=== PATIENT | female | born 1975 | race Caucasian/White ===

== ENCOUNTER 2017-04-26 19:30 | Emergency (ER) | payer MEDICARE, OTHER ==
[~2017-04-26] VITALS: Ht 152.4 cm; Wt 97.5 kg
[~2017-04-26 19:30] MED LIST: ABAC300; ALBU90OI61 INH; AMLO10 PO; ATOR40TA PO; AZIT250 PO; CALACE667G PO; CALC.25 PO; CINA30 PO; CIPR500 PO; CLON.5 PO; CYCL10 PO; DILT120ER PO; DOXE2.5 PO; ENAL20 PO; ENAL5 PO; ESOM20 PO; FOSRENAL PO; FURO40 PO; Fosrenol750 MG PO; GABA100 PO; HYDACE5 PO; INSR10I; INSUASPI SC; INSUASPI SS; INSULANI; INSULANI SC; INSULANPEN SC; INSULIN-REGULAR; LEVSOD75 PO; LISI5 PO; LOSARTAN POTASS50 MG PO; LOSHYD; MECL12.5 PO; MEDR2.5 PO; METO10 PO; METO25ER PO; METO50 PO; MIDO2.5 PO; MIDO5 PO; NEPHRO-VITE PO; NEPHRO-VITE RX1 EACH PO; Nephro-Vite RX1 EA PO; Norco 5-325 Ta1 EACH PO; Novolog Fl100 UNIT/1 SC; Novolog Fl100 UNIT/1 SQ; ONDA4 PO; ONDA4ODT MM; OXYACE5T PO; PENVK500 PO; PROM25 PO; Pepcid20 MG PO; ROPI.25 PO; ROSU10TA PO; Ropinirole HC0.25 MG PO; SENSIPAR PO; SERT100 PO; SEVEC800; SEVEC800 PO; SULTRIDS PO; SUMA25 PO; Synthroid75 MCG PO; VITAMIN D3 COM1 EACH PO; Zofran Odt4 MG PO; Zofran Odt4 MG SL; [UNRECOGNIZED DRUG - OTHER]; [UNRECOGNIZED DRUG - REMARK] PO
[2017-04-26 22:09] LABS: BASOPHILS ABSOLUTE AUTO 0.01 K/mm3 (0.00-0.23); BASOPHILS PERCENT AUTO 0 % (0-2); EOSINOPHILS ABSOLUTE AUTO 0.14 K/mm3 (0.00-0.68); EOSINOPHILS PERCENT AUTO 2 % (0-6); Hematocrit 31.6 % (33.0-51.0); Hemoglobin 9.9 g/dL (11.5-16.0); IMMATURE GRAN ABSOLUTE AUTO 0.03 K/mm3 (0.00-0.10); IMMATURE GRAN PERCENT AUTO 0 % (0-1); LYMPHOCYTES ABSOLUTE AUTO 1.85 K/mm3 (0.84-5.20); LYMPHOCYTES PERCENT AUTO 27 % (21-46); MONOCYTES ABSOLUTE AUTO 0.41 K/mm3 (0.16-1.47); MONOCYTES PERCENT AUTO 6 % (4-13); Mean Corpuscular HGB 29.7 pg (26.0-34.0); Mean Corpuscular HGB Conc 31.3 g/dL (31.5-36.5); Mean Corpuscular Volume 95 fL (80-100); Mean Platelet Volume 8.4 fL (9.1-12.4); NEUTROPHILS ABSOLUTE AUTO 4.46 K/mm3 (1.96-9.15); NEUTROPHILS PERCENT AUTO 65 % (41-73); Platelet Count 279 K/mm3 (150-400); RDW Coefficient Variation 18.3 % (11.7-14.2); RDW Standard Deviation 62.6 fL (35.1-46.3); Red Blood Cell Count 3.33 M/mm3 (3.80-5.20)
[2017-04-26 22:27] LABS: Albumin, Blood 3.8 g/dL (3.4-5.0); Bilirubin, Total 0.5 mg/dL (0.1-1.0); Bun/Creatinine Ratio 6.4 (12.0-20.0); Calcium, Blood 9.2 mg/dL (8.5-10.1); Creatinine, Blood 7.17 mg/dL (0.40-1.00); Globulin, Blood 3.8 g/dL (2.2-4.0); Potassium, Blood 3.7 mmol/L (3.5-5.5); Total Protein, Blood 7.6 g/dL (6.4-8.2)
[2017-07-01] MEDS ORDERED: BIOTIN FORTE PO (17:18)
[2017-07-01] MEDS ORDERED: CALC.25 PO (17:19)
[2017-07-01] MEDS ORDERED: CHOL10002 PO (17:20)
[2017-07-01] MEDS ORDERED: Fosrenol1000 MG PO (17:20)
[2017-07-01] MEDS ORDERED: NEPHRO-VITE RX1 EACH PO (17:21)
== END 2017-04-26 23:15 | disposition home or self-care (01) ==
LOC: ER 19:30
PROVIDERS: Emergency Medicine
DX: J20.9 Acute bronchitis, unspecified (principal); F41.9 Anxiety disorder, unspecified; E11.22 Type 2 diabetes mellitus with diabetic chronic kidney disease; N18.9 Chronic kidney disease, unspecified; Z99.2 Dependence on renal dialysis; Z88.1 Allergy status to other antibiotic agents; Z88.8 Allergy status to other drugs, medicaments and biological substances; Z79.899 Other long term (current) drug therapy; Z79.4 Long term (current) use of insulin
CPT/HCPCS: 36415; 71046; 80053; 82947; 85025; 93005; 93010; 99284

== ENCOUNTER 2017-04-28 04:27 | Emergency (ER) | payer MEDICARE, OTHER ==
[~2017-04-28] VITALS: Ht 152.4 cm; Wt 97.5 kg
[2017-04-28 05:00] LABS: Calcium, Ionized (POC) 1.06 mmol/L (1.10-1.46); Chloride (POC) 95 mmol/L (98-108); Creatinine (POC) 10.8 mg/dL (0.6-1.0); Glucose (ISTAT POC) 208 mg/dL (70-99); Hemoglobin (POC) 9.2 g/dL (12.0-16.0); Potassium (POC) 4.3 mmol/L (3.5-5.5); Sodium (POC) 138 mmol/L (135-148); Total CO2 (POC) 31 mmol/L (21-32)
[2017-04-28 05:15] LABS: BASOPHILS ABSOLUTE AUTO 0.01 K/mm3 (0.00-0.23); BASOPHILS PERCENT AUTO 0 % (0-2); EOSINOPHILS ABSOLUTE AUTO 0.15 K/mm3 (0.00-0.68); EOSINOPHILS PERCENT AUTO 2 % (0-6); Hematocrit 30.4 % (33.0-51.0); Hemoglobin 9.5 g/dL (11.5-16.0); IMMATURE GRAN ABSOLUTE AUTO 0.05 K/mm3 (0.00-0.10); IMMATURE GRAN PERCENT AUTO 1 % (0-1); LYMPHOCYTES ABSOLUTE AUTO 1.31 K/mm3 (0.84-5.20); LYMPHOCYTES PERCENT AUTO 18 % (21-46); MONOCYTES ABSOLUTE AUTO 0.39 K/mm3 (0.16-1.47); MONOCYTES PERCENT AUTO 5 % (4-13); Mean Corpuscular HGB 29.7 pg (26.0-34.0); Mean Corpuscular HGB Conc 31.3 g/dL (31.5-36.5); Mean Corpuscular Volume 95 fL (80-100); Mean Platelet Volume 8.3 fL (9.1-12.4); NEUTROPHILS ABSOLUTE AUTO 5.53 K/mm3 (1.96-9.15); NEUTROPHILS PERCENT AUTO 74 % (41-73); Platelet Count 232 K/mm3 (150-400); RDW Coefficient Variation 18.1 % (11.7-14.2); RDW Standard Deviation 62.4 fL (35.1-46.3); White Blood Cell Count 7.44 K/mm3 (4.00-11.30)
[2017-04-28 05:52] LABS: Albumin, Blood 3.7 g/dL (3.4-5.0); Albumin/Globulin Ratio 1.1 (0.8-1.8); Bilirubin, Total 0.7 mg/dL (0.1-1.0); Calcium, Blood 8.6 mg/dL (8.5-10.1); Globulin, Blood 3.5 g/dL (2.2-4.0); Total Protein, Blood 7.2 g/dL (6.4-8.2)
[2017-04-28 05:55] LABS: Creatinine, Blood 10.3 mg/dL (0.40-1.00)
[2017-04-28 05:59] LABS: Troponin I 0.021 ng/mL (0.000-0.040)
[2017-04-28 06:16] LABS: Influenza A Negative (NEGATIVE); Influenza B Negative (NEGATIVE)
[2017-07-01] MEDS ORDERED: BIOTIN FORTE PO (17:18)
[2017-07-01] MEDS ORDERED: CALC.25 PO (17:19)
[2017-07-01] MEDS ORDERED: CHOL10002 PO (17:20)
[2017-07-01] MEDS ORDERED: Fosrenol1000 MG PO (17:20)
[2017-07-01] MEDS ORDERED: NEPHRO-VITE RX1 EACH PO (17:21)
== END 2017-04-28 07:29 | disposition home or self-care (01) ==
LOC: ER 04:27
PROVIDERS: Emergency Medicine
DX: R05 Cough (principal); Z88.1 Allergy status to other antibiotic agents; Z88.8 Allergy status to other drugs, medicaments and biological substances; Z79.899 Other long term (current) drug therapy; Z79.4 Long term (current) use of insulin; F41.9 Anxiety disorder, unspecified; E11.9 Type 2 diabetes mellitus without complications; Z87.891 Personal history of nicotine dependence
CPT/HCPCS: 71046; 80047; 80053; 84484; 85014; 85025; 87804; 93005; 93010; 94640; 96374; 96375; 99283; J2405; J2930

== ENCOUNTER 2017-07-06 08:55 | Day surgery (SDC) | payer MEDICARE, OTHER ==
[~2017-07-06] VITALS: Ht 152.4 cm; Wt 96.6 kg
[~2017-07-06 08:55] MED LIST changes: +BIOTIN FORTE PO; +CHOL10002 PO; +Fosrenol1000 MG PO
== END 2017-07-06 23:07 | disposition home or self-care (01) ==
LOC: ORSCMMR 08:55
PROVIDERS: Internal Medicine Gastroenterology
PROC: 0DB68ZX Excision of Stomach, Via Natural or Artificial Opening Endoscopic, Diagnostic (ICD-10-PCS; principal; 2017-07-06 10:00)
PROC: 0DB98ZX Excision of Duodenum, Via Natural or Artificial Opening Endoscopic, Diagnostic (ICD-10-PCS; principal; 2017-07-06 10:00)
DX: R10.13 Epigastric pain (principal); R11.0 Nausea; F32.9 Major depressive disorder, single episode, unspecified; K21.9 Gastro-esophageal reflux disease without esophagitis; G47.33 Obstructive sleep apnea (adult) (pediatric); N18.6 End stage renal disease; Z99.2 Dependence on renal dialysis; E10.22 Type 1 diabetes mellitus with diabetic chronic kidney disease; Z79.4 Long term (current) use of insulin; E66.01 Morbid (severe) obesity due to excess calories; Z68.41 Body mass index [BMI] 40.0-44.9, adult; Z79.899 Other long term (current) drug therapy
CPT/HCPCS: 82435; 82947; 84132; 84295; 84703; 88305; 88313; 88341; 88342; J2710; J7030

== ENCOUNTER → 2017-08-03 | Outpatient (CLI) | payer MEDICARE, OTHER | END | disposition home or self-care (01) | LOC: LAB 14:29 → LAB SHORT 14:29 | DX: M45.4 Ankylosing spondylitis of thoracic region (principal) | CPT/HCPCS: 86812 ==

== ENCOUNTER → 2017-09-12 | Outpatient (CLI) | payer MEDICARE, OTHER ==
[2017-09-12 16:23] LABS: Rheumatoid Factor, Serum Negative (Negative)
[2017-09-14 14:15] LABS: Antinuclear Antibody Screen Negative (Negative)
== END | disposition home or self-care (01) ==
LOC: EDSTATUS 08:02 → LAB DAV 12:43
PROVIDERS: Internal Medicine Nephrology
DX: M54.5 Low back pain (principal); M25.569 Pain in unspecified knee
CPT/HCPCS: 86038; 86430

== ENCOUNTER 2017-10-22 15:58 | Emergency (ER) | payer MEDICARE, OTHER ==
[~2017-10-22] VITALS: Ht 152.4 cm; Wt 90.3 kg
== END 2017-10-22 17:54 | disposition home or self-care (01) ==
LOC: ER 15:58
DX: R05 Cough (principal); Z88.1 Allergy status to other antibiotic agents; Z88.8 Allergy status to other drugs, medicaments and biological substances; Z79.4 Long term (current) use of insulin; Z79.899 Other long term (current) drug therapy; E10.22 Type 1 diabetes mellitus with diabetic chronic kidney disease; I12.0 Hypertensive chronic kidney disease with stage 5 chronic kidney disease or end stage renal disease; N18.6 End stage renal disease; E03.9 Hypothyroidism, unspecified; E66.01 Morbid (severe) obesity due to excess calories; Z87.891 Personal history of nicotine dependence
CPT/HCPCS: 71046; 99283

== ENCOUNTER → 2018-04-30 | Outpatient (CLI) | payer MEDICARE, OTHER | END | disposition home or self-care (01) | LOC: LAB DAV 15:30 | DX: N18.6 End stage renal disease (principal) | CPT/HCPCS: 84550 ==

== ENCOUNTER → 2018-07-02 | Outpatient (CLI) | payer MEDICARE, OTHER ==
[2018-07-02 14:18] LABS: Hematocrit 32.2 % (33.0-51.0); Hemoglobin 10.4 g/dL (11.5-16.0)
== END | disposition home or self-care (01) ==
LOC: LAB 14:03 → LAB SHORT 14:03
PROVIDERS: Internal Medicine Nephrology
DX: D64.9 Anemia, unspecified (principal)
CPT/HCPCS: 85014; 85018

== ENCOUNTER 2019-01-15 14:36 | Emergency (ER) | payer MEDICARE, OTHER ==
[~2019-01-15] VITALS: Ht 152.4 cm; Wt 92.1 kg
[2019-01-15] MEDS ORDERED: CALCIUM ACETAT667 MG PO (14:56)
[2019-01-15] MEDS ORDERED: LEVSOD50 PO (14:57)
[2019-01-15] MEDS ORDERED: SEVEC800 PO (14:57)
[2019-01-15] MEDS ORDERED: Zoloft100 MG PO (14:58)
[2019-01-15] MEDS ORDERED: Ropinirole HCl0.5 MG PO (14:58)
[2019-01-15] MEDS ORDERED: NOVOLOG FL100 UNIT/1 (14:59)
[2019-01-15] MEDS ORDERED: Neurontin 100100 MG PO (14:59)
[2019-01-15] MEDS ORDERED: THERA-D2000 UNIT PO (15:01)
[2019-01-15] MEDS ORDERED: basaglar SC (15:02)
[2019-01-15] MEDS ORDERED: NORTHERA100 MG PO (15:03)
[2019-01-15 16:23] LABS: BASOPHILS ABSOLUTE AUTO 0.02 K/mm3 (0.00-0.23); BASOPHILS PERCENT AUTO 0 % (0-2); EOSINOPHILS ABSOLUTE AUTO 0.17 K/mm3 (0.00-0.68); EOSINOPHILS PERCENT AUTO 3 % (0-6); Hematocrit 32.5 % (33.0-51.0); Hemoglobin 10.5 g/dL (11.5-16.0); IMMATURE GRAN ABSOLUTE AUTO 0.04 K/mm3 (0.00-0.10); IMMATURE GRAN PERCENT AUTO 1 % (0-1); LYMPHOCYTES ABSOLUTE AUTO 1.65 K/mm3 (0.84-5.20); LYMPHOCYTES PERCENT AUTO 29 % (21-46); MONOCYTES ABSOLUTE AUTO 0.43 K/mm3 (0.16-1.47); MONOCYTES PERCENT AUTO 8 % (4-13); Mean Corpuscular HGB 33.3 pg (26.0-34.0); Mean Corpuscular HGB Conc 32.3 g/dL (31.5-36.5); Mean Corpuscular Volume 103 fL (80-100); Mean Platelet Volume 9.4 fL (9.1-12.4); NEUTROPHILS ABSOLUTE AUTO 3.37 K/mm3 (1.96-9.15); NEUTROPHILS PERCENT AUTO 59 % (41-73); Platelet Count 262 K/mm3 (150-400); RDW Coefficient Variation 14.8 % (11.7-14.2); RDW Standard Deviation 55.9 fL (35.1-46.3); Red Blood Cell Count 3.15 M/mm3 (3.80-5.20); White Blood Cell Count 5.68 K/mm3 (4.00-11.30)
[2019-01-15 16:42] LABS: Troponin I <0.015 ng/mL (0.000-0.040)
[2019-01-15 16:43] LABS: Alanine Aminotransfer (ALT/SGP 15 U/L (12-78); Albumin, Blood 3.8 g/dL (3.4-5.0); Alk Phos 72 U/L (50-136); Anion Gap 5 mmol/L (6-16); Aspartate Aminotrans (AST/SGOT 14 U/L (12-37); Bilirubin, Total 0.4 mg/dL (0.1-1.0); Blood Urea Nitrogen 46 mg/dL (8-24); Bun/Creatinine Ratio 6.9 (12.0-20.0); CO2, Blood 31 mmol/L (21-32); Calcium, Blood 8.2 mg/dL (8.5-10.1); Chloride, Blood 99 mmol/L (98-108); Creatinine, Blood 6.71 mg/dL (0.40-1.00); Globulin, Blood 3.8 g/dL (2.2-4.0); Glomerular Filtration Rate 7 (60-); Glucose, Blood 289 mg/dL (70-99); Potassium, Blood 4.9 mmol/L (3.5-5.5); Sodium, Blood 135 mmol/L (136-145); Total Protein, Blood 7.6 g/dL (6.4-8.2)
== END 2019-01-15 17:46 | disposition home or self-care (01) ==
LOC: ER 14:36
PROVIDERS: Physician Assistant
DX: I95.1 Orthostatic hypotension (principal); E11.22 Type 2 diabetes mellitus with diabetic chronic kidney disease; N18.6 End stage renal disease; F41.9 Anxiety disorder, unspecified; Z99.2 Dependence on renal dialysis; Z87.891 Personal history of nicotine dependence; Z88.1 Allergy status to other antibiotic agents; Z88.8 Allergy status to other drugs, medicaments and biological substances; Z91.048 Other nonmedicinal substance allergy status; Z79.899 Other long term (current) drug therapy; Z79.4 Long term (current) use of insulin
CPT/HCPCS: 36415; 80053; 84484; 85025; 93005; 93010; 99284-25

== ENCOUNTER → 2019-02-04 | Outpatient (CLI) | payer MEDICARE, OTHER ==
[~2019-02-04] MED LIST changes: +CALCIUM ACETAT667 MG PO; +LEVSOD50 PO; +NORTHERA100 MG PO; +NOVOLOG FL100 UNIT/1; +Neurontin 100100 MG PO; +Ropinirole HCl0.5 MG PO; +THERA-D2000 UNIT PO; +Zoloft100 MG PO; +basaglar SC
[2019-02-04 17:25] LABS: Amylase, Blood 90 U/L (25-115)
[2019-02-04 19:13] LABS: Alanine Aminotransfer (ALT/SGP 20 U/L (12-78); Albumin, Blood 3.9 g/dL (3.4-5.0); Albumin/Globulin Ratio 0.9 (0.8-1.8); Alk Phos 80 U/L (50-136); Aspartate Aminotrans (AST/SGOT 17 U/L (12-37); Bilirubin, Direct <0.1 mg/dL (0.0-0.3); Bilirubin, Indirect Unable to Calculate mg/dL (0.1-0.7); Bilirubin, Total 0.5 mg/dL (0.1-1.0); Globulin, Blood 4.4 g/dL (2.2-4.0); Total Protein, Blood 8.3 g/dL (6.4-8.2)
== END | disposition home or self-care (01) ==
LOC: LAB SHORT 16:38 → LAB 16:38
PROVIDERS: Internal Medicine Nephrology
DX: R10.9 Unspecified abdominal pain (principal)
CPT/HCPCS: 80076; 82150; 83690

== ENCOUNTER 2019-07-18 14:00 | Emergency (ER) | payer MEDICARE, OTHER ==
[~2019-07-18] VITALS: Ht 152.4 cm; Wt 90.7 kg
== END 2019-07-18 14:41 | disposition home or self-care (01) ==
LOC: ER 14:00
DX: Z00.00 Encounter for general adult medical examination without abnormal findings (principal); Z88.1 Allergy status to other antibiotic agents; Z88.8 Allergy status to other drugs, medicaments and biological substances; Z79.899 Other long term (current) drug therapy; F41.9 Anxiety disorder, unspecified; E11.9 Type 2 diabetes mellitus without complications; N19 Unspecified kidney failure; Z87.891 Personal history of nicotine dependence
CPT/HCPCS: 99283

== ENCOUNTER 2019-08-07 23:44 | Inpatient (IN) | payer MEDICARE, OTHER ==
[~2019-08-07] VITALS: Ht 152.4 cm; Wt 92.7 kg
[~2019-08-07 23:44] MED LIST changes: +EUTHYROX50 MCG PO; -LEVSOD50 PO
[2019-08-08 01:35] LABS: BASOPHILS ABSOLUTE AUTO 0.03 K/mm3 (0.00-0.23); BASOPHILS PERCENT AUTO 0 % (0-2); EOSINOPHILS ABSOLUTE AUTO 0.27 K/mm3 (0.00-0.68); EOSINOPHILS PERCENT AUTO 3 % (0-6); Hematocrit 36.5 % (33.0-51.0); Hemoglobin 11.5 g/dL (11.5-16.0); IMMATURE GRAN ABSOLUTE AUTO 0.09 K/mm3 (0.00-0.10); IMMATURE GRAN PERCENT AUTO 1 % (0-1); LYMPHOCYTES PERCENT AUTO 25 % (21-46); MONOCYTES ABSOLUTE AUTO 0.68 K/mm3 (0.16-1.47); MONOCYTES PERCENT AUTO 8 % (4-13); Mean Corpuscular HGB 31.9 pg (26.0-34.0); Mean Corpuscular HGB Conc 31.5 g/dL (31.5-36.5); Mean Corpuscular Volume 101 fL (80-100); Mean Platelet Volume 9.5 fL (9.1-12.4); NEUTROPHILS ABSOLUTE AUTO 5.68 K/mm3 (1.96-9.15); NEUTROPHILS PERCENT AUTO 63 % (41-73); Platelet Count 281 K/mm3 (150-400); RDW Coefficient Variation 14.7 % (11.7-14.2); Red Blood Cell Count 3.61 M/mm3 (3.80-5.20); White Blood Cell Count 9.05 K/mm3 (4.00-11.30)
[2019-08-08 02:06] LABS: Albumin, Blood 3.4 g/dL (3.4-5.0); Albumin/Globulin Ratio 0.8 (0.8-1.8); Bilirubin, Total 0.6 mg/dL (0.1-1.0); Bun/Creatinine Ratio 7.4 (12.0-20.0); Calcium, Blood 7.4 mg/dL (8.5-10.1); Creatinine, Blood 7.74 mg/dL (0.40-1.00); Globulin, Blood 4.3 g/dL (2.2-4.0); Potassium, Blood 7.3 mmol/L (3.5-5.5); Total Protein, Blood 7.7 g/dL (6.4-8.2)
[2019-08-08 03:23] LABS: Glucose, Blood 543 mg/dL (70-99); Potassium, Blood 5.8 mmol/L (3.5-5.5)
[2019-08-08] MEDS ORDERED: BENADRYL25 MG PO (04:28)
[2019-08-08] MEDS ORDERED: MOTION RELIEF25 MG PO (04:30)
--- NOTE | 2019-08-08 04:55 | NUR ---
HD 1:1 NON-ROUTINE HOURS HEMODIALYSIS TREATMENT ORDERED BY DR GONZALEZ FOR PATIENT ADMITTED TO ICU VIA ER WITH HYPERGLYCEMIA AND HYPERKALEMIA WITH SERUM K+ > 7.
[2019-08-08 04:56] LABS: Hematocrit 32.5 % (33.0-51.0); Hemoglobin 10.4 g/dL (11.5-16.0); Mean Corpuscular HGB 31.7 pg (26.0-34.0); Mean Corpuscular Volume 99 fL (80-100); Mean Platelet Volume 9.1 fL (9.1-12.4); Platelet Count 282 K/mm3 (150-400); RDW Coefficient Variation 14.6 % (11.7-14.2); Red Blood Cell Count 3.28 M/mm3 (3.80-5.20); White Blood Cell Count 9.07 K/mm3 (4.00-11.30)
[2019-08-08 05:35] LABS: Albumin, Blood 3.4 g/dL (3.4-5.0); Albumin/Globulin Ratio 0.8 (0.8-1.8); Bilirubin, Total 0.6 mg/dL (0.1-1.0); Bun/Creatinine Ratio 7.3 (12.0-20.0); Calcium, Blood 8.2 mg/dL (8.5-10.1); Creatinine, Blood 8.37 mg/dL (0.40-1.00); Globulin, Blood 4.1 g/dL (2.2-4.0); Potassium, Blood 4.4 mmol/L (3.5-5.5); Total Protein, Blood 7.5 g/dL (6.4-8.2)
--- NOTE | 2019-08-08 06:23 | NUR ---
PT WAS ADMITTED FROM ER AT 0405. ABLE TO AMB SELF TO BED WITHOUT DIFFICULTY. SHOP HAND IN ROOM DOING DIALYSIS. WAITING FOR DIALYSIS TO BE DONE BEFORE GIVING AZITHROMYACIN. PT WAS ON INSULIN GTT ON ARRIVAL TO UNIT BUT IT WAS D/C'D DUE TO CBG UNDER [address] HAINES. CBG IS NOW 95. PT DOES HAVE A CONTINUOUS MONITOR THAT SHE CAN MONITOR CBG FROM PHONE. PT STATES SHE IS FEELING BETTER NOW THAT HER CBG HAS IMPROVED. NO SIGN OF DISTRESS. DR. GONZALEZ HAS BEEN IN TO SEE PT.
--- NOTE | 2019-08-08 09:27 | NUR ---
Pt ref bath. Said she just got here early this AM and hasn't had much sleep and would like to try to nap. She will call if she changes her mind about getting cleaned up. RN notifed.
--- NOTE | 2019-08-08 09:37 | NUR ---
CARE ASSUMED CARE AND REPORT ASSUMED FROM DANYEL DIAZ. PT SITTING UP IN BED, A/O X 3, CALM AND COOPERATIVE. DENIES PAIN THIS AM. VSS. FINISHING DIALYSIS. STATES SHE DID NOT SLEEP MUCH LASTNIGHT SINCE SHE DIDN'T HAVE HER CPAP; MACHINE SETUP INITATED WITH RT. AFEBRILE. PT DOES HAVE WHEEZES IN ALL LUNG JORGE, SPO2 97% ON RA. LIMITED IV ACCESS CURRENTLY; WILL OBTAIN POSSIBLE POWERGLIDE. IV SALINE LOCKED. BLOOD SUAGAR 72 FOLLOWING DIALYSIS. WILL CONTINUE TO MONITOR.
[2019-08-08] MEDS ORDERED: INSULANPEN SC (10:03)
--- NOTE | 2019-08-08 10:48 | NUR ---
IV UPDATE MD LOZADA AT BEDSIDE FOR EVALUATION. STATES THAT IV ACCESS IS NOT NEEDED AT THIS TIME. WILL CONTINUE TO MONITOR.
--- NOTE | 2019-08-08 12:05 | NUR ---
REASSESSMENT PT REMAINS INDEPENDENT IN ROOM. VSS. NSR, HR 90S. BP WNL. SPO2 98% ON RA. TREATING BLOOD SUGARS WITH HUMALOG SLIDING SCALE AT THIS TIME. PT WILL RESUME HER LONG ACTING INSULIN THIS EVENING. AFEBRILE. PT CONTINUES TO HAVE WHEEZES IN BASES BUT DOES HAVE A STRONG COUGH REFLEX. WILL CONTINUE TO MONITOR.
--- NOTE | 2019-08-08 17:44 | NUR ---
SHIFT SUMMARY PT RECEIVED DIALYSIS THIS AM; 3L REMOVED. AWIATING COVID RESULTS; COMMUNITY TEST PENDING ALONG WITH ANTIBODY TEST. VSS ENTIRE SHIFT. PT NOW MEDICAL STATUS. ACHS HUMALOG TRANSITIONED FROM SLIDING SCALE TO CARB COUNT. PT REMAINS WITHOUT IV ACCESS; OK FROM MD LOZADA. PT INDEPENDENT IN ROOM. WILL GIVE BEDSIDE, HANDOFF REPORT TO ANNIE DIAZ.
--- NOTE | 2019-08-08 21:50 | NUR ---
ASSUMED CARE NOTE: ASSUMED CARE OF PT AT 1900, RECEVIED REPORT FROM AMANDA DIAZ. PT IS A/OX4, SHE AMBULATES INDEPENDENTLY IN THE ROOM. PT IS ON RA, WHEEZING IN BOTH LOWER LOBES NOTED. PT STATES SHE HAS A PRODUCTIVE COUGH, WITH YELLOW PHLEGM. PT VITALS STABLE. PT DENIES ANY PAIN/NAUSEA/VOMITING AT THIS TIME. AV FISTULA, GOOD BRUIT HEARD AND THRILL FELT. BED AT LOWEST LEVEL, CALL LIGHT WITHIN REACH. WILL CONTINUE TO MONITOR PT T/O SHIFT
--- NOTE | 2019-08-09 03:11 | NUR ---
UPDATE: PT WOKE UP VOMITING. STATING " I STARTED TO COUGH AND BEGAN TO THROW UP, I FEEL NAUSEATED" PT WAS GIVEN ZOFRAN PRN. CBG WAS 250. PT WAS CLAMMY, VITALS STABLE, AFEBRILE. WET WASHCLOTH WAS GIVEN, LIGHTS DIM. BED AT LOWEST LEVEL, CALL LIGHT WITHIN REACH.
[2019-08-09 03:54] LABS: Hematocrit 36.9 % (33.0-51.0); Hemoglobin 11.6 g/dL (11.5-16.0)
[2019-08-09 04:17] LABS: Albumin, Blood 3.7 g/dL (3.4-5.0); Anion Gap 10 mmol/L (6-16); Blood Urea Nitrogen 42 mg/dL (8-24); Bun/Creatinine Ratio 5.8 (12.0-20.0); CO2, Blood 27 mmol/L (21-32); Calcium, Blood 8.8 mg/dL (8.5-10.1); Chloride, Blood 95 mmol/L (98-108); Creatinine, Blood 7.19 mg/dL (0.40-1.00); Glomerular Filtration Rate 7 (60-); Glucose, Blood 279 mg/dL (70-99); Magnesium, Blood 2.3 mg/dL (1.6-2.4); Phosphorus, Blood 5.3 mg/dL (2.5-4.9); Potassium, Blood 5.8 mmol/L (3.5-5.5); Sodium, Blood 132 mmol/L (136-145)
--- NOTE | 2019-08-09 06:03 | NUR ---
SHIFT SUMMARY: SEE PREVIOUS NOTE. CALLED REGARDING ELEVATED BLOOD SUGAR, ORDERS TO GIVE 14U OF LANTUS NOW, AND TO COVER CBG WITH ONEL OF FAST ACTING INSULIN. PT REMAINS A/OX3, PT CONTINUES TO BE ON RA. PT C/O NAUSEA ONCE AT NIGHT, WAS MEDICATED WITH ZOFRAN PER EMAR. VITALS STABLE. COVID TEST CAME BACK NEGATIVE, PT OUT OF ISOLATION. WILL CONTINUE TO MONITOR PT UNTIL REPORT IS GIVEN TO ONCOMING SHIFT.
--- NOTE | 2019-08-09 07:49 | NUR ---
PT A&O X4. DENIES PAIN. REPORTS NAUSEA-MED WITH ZOFRAN 4 MG PO. PT REQUESTS THAT PO MEDS BE PLACED AT BEDSIDE FOR HER TO TAKE ONCE SHE CAN EAT HER BREAKFAST. CBG 427-PT REQUESTS THAT HER BLOOD SUGAR BE RECHECKED IN 2 HOURS AND WILL ADMINISTER COVERAGE AT THAT TIME SHE JUST RECEIVED INSULIN AROUND 0600. ANTICIPATE DIALYSIS LATER TODAY,
--- NOTE | 2019-08-09 09:06 | NUR ---
CBG 345-PT ATE 15% OF BREAKFAST. GIVEN 6 UNITS HUMALOG PER PT WHEEL COVERAGE. PT AMBULATED TO SHOWER WITHOUT DIFFICULTY-TO DIALYSIS VIA WHEELCHAIR ONCE DONE WITH SHOWER.
--- NOTE | 2019-08-09 11:48 | NUR ---
PT IN DIALYSIS AT THIS TIME. REPORT GIVEN TO JOE NUNO. PT TO ROOM 312 AFTER DIALYSIS COMPLETE.
--- NOTE | 2019-08-09 19:22 | NUR ---
SHIFT SUMMARY: PATIENT TRANSFER FROM ICU-16 THIS SHIFT. PT A&O; CALM AND COOEPRATIVE WITH CARE; NO COMPLAINTS SINCE ARRIVAL ON MEDICAL. DIALYSIS TODAY; PT TOLERATED WELL. COVID-19 SWAB THIS SHIFT, PER DAVITA REQUIREMENTS. PT INDEPENDENT IN ROOM. EXPECTED D/C TO HOME 08/09. REPORT GIVEN TO ONCOMING RN.
[2019-08-10 04:54] LABS: Hematocrit 35.9 % (33.0-51.0); Hemoglobin 11.2 g/dL (11.5-16.0)
[2019-08-10 05:09] LABS: Albumin, Blood 3.7 g/dL (3.4-5.0); Anion Gap 8 mmol/L (6-16); Blood Urea Nitrogen 43 mg/dL (8-24); CO2, Blood 33 mmol/L (21-32); Calcium, Blood 8.9 mg/dL (8.5-10.1); Chloride, Blood 94 mmol/L (98-108); Creatinine, Blood 7.22 mg/dL (0.40-1.00); Glomerular Filtration Rate 7 (60-); Glucose, Blood 269 mg/dL (70-99); Magnesium, Blood 2.6 mg/dL (1.6-2.4); Phosphorus, Blood 6.1 mg/dL (2.5-4.9); Potassium, Blood 4.8 mmol/L (3.5-5.5); Sodium, Blood 135 mmol/L (136-145)
[2019-08-10 05:29] LABS: Percent Saturation 52.6 % (15.0-50.0)
--- NOTE | 2019-08-10 05:31 | NUR ---
SHIFT SUMMARY: PATIENT IS A&OX4, NO COMPLAINTS OF PAIN, VS ARE STABLE. INDEPENDANT IN THE ROOM TO THE BATHROOM. BLOOD GLUCOSE WAS 178 AT [facility] 32 UNITS OF LANTUS WERE GIVEN. THIS AM PATIENT REPORTS BLOOD GLUCOSE IS 290 ON HER CONTINOUS SQ MONITOR AND THAT SHE WOULD AT HOME GIVE HERSELF 3 UNITS OF NON MEAL COVERAGE. A CALL IS PLACED TO DR HAINES TO UPDATE ON ABOVE INFORMATION AND OBTAIN ORDER FOR COVERAGE PER HOME ROUTINE, AWAITING CALL BACK.
--- NOTE | 2019-08-10 06:13 | NUR ---
BLOOD GLUCOSE: ORDER WAS OBTAINED TO GIVE 3 UNITS OF COVERAGE NOW FOR BLOOD GLUCOSE OF 290, COVERAGE IS GIVEN.
--- NOTE | 2019-08-10 07:00 | NUR ---
ASSUMED CARE: PT RESTING IN BED. SPEAKING TO STAFF, ALERT AND ORIENTED. DENIES NEEDS OR CONCERNS.
--- NOTE | 2019-08-10 09:30 | NUR ---
PT TAKEN TO DIALYSIS VIA WHEEL CHAIR.
--- NOTE | 2019-08-10 11:28 | NUR ---
Dialysis Patient has been run daily. She does not have edema in legs some in face, lsc. Did not tolerated 3l goal, reduced to 2. Did not tollerated 2l goal
--- NOTE | 2019-08-10 11:49 | NUR ---
PT RETURNED FROM DIALYSIS AT THIS TIME. STATES FEELS DIZZY, SLIGHTLY HYPOTENSION.
[2019-08-10] MEDS ORDERED: BASAGLAR K100 UNIT/2 SC (11:56)
[2019-08-10] MEDS ORDERED: UBID10 (11:58)
[2019-08-10] MEDS ORDERED: Fludrocortison0.1 MG PO (11:59)
[2019-08-10] MEDS ORDERED: NORTHERA300 MG PO (12:00)
[2019-08-10] MEDS ORDERED: ROPI.25 PO (12:02)
--- NOTE | 2019-08-10 17:50 | NUR ---
SHIFT SUMMARY: PT AWAITING SECOND COVID TEST RESULT IN ORDER TO DC HOME WITH DIALYSIS AT [facility]. RECIEVED DIALYSIS TODAY. MANAGING CBGS BASED ON PT'S HOME SLIDING SCALE. INDEPENDENT IN ROOM. DENIES NEEDS OR CONCERNS AT THIS TIME.
[2019-08-11 03:58] LABS: Hematocrit 34.8 % (33.0-51.0)
[2019-08-11 04:20] LABS: Albumin, Blood 3.5 g/dL (3.4-5.0); Anion Gap 9 mmol/L (6-16); Blood Urea Nitrogen 47 mg/dL (8-24); Bun/Creatinine Ratio 6.4 (12.0-20.0); CO2, Blood 33 mmol/L (21-32); Chloride, Blood 93 mmol/L (98-108); Creatinine, Blood 7.31 mg/dL (0.40-1.00); Glomerular Filtration Rate 6 (60-); Glucose, Blood 112 mg/dL (70-99); Magnesium, Blood 2.6 mg/dL (1.6-2.4); Phosphorus, Blood 6.1 mg/dL (2.5-4.9); Potassium, Blood 4.5 mmol/L (3.5-5.5); Sodium, Blood 135 mmol/L (136-145)
--- NOTE | 2019-08-11 06:26 | NUR ---
SHIFT SUMMARY: PATIENT IS A&OX4, NO REPORTS OF PAIN. BLOOD GLUCOSE WAS 259 AT HS LANTUS 32 AND 5 UNITS OF COVERAGE WITH A SNACK WAS GIVEN. THIS AM GLUCOSE IS 112 ON LABS. SNACK WAS GIVEN.
[2019-08-11] MEDS ORDERED: GUAI600T33 PO (17:21)
[2019-08-11] MEDS ORDERED: Flonase 0.05% N16 GM (17:21)
[2019-08-11] MEDS ORDERED: Vitamin D2000 UNIT PO (17:22)
[2019-08-11] MEDS ORDERED: CALCITRIOL0.5 MC1 PO (17:36)
--- NOTE | 2019-08-11 19:33 | NUR ---
summary/discharge PT A/OX 4, PLEASANT AFFECT T/O DAY. HX ESRD/HD, GFR 6, DR GONZALEZ IN TO SEE HER THIS AM, NO DIALYSIS TODAY. K+ WNL @ 4.5, PT STATE HOPEFUL FOR D/C HOME TODAY. D/C HAS BEEN ON HOLD PENDING RESULTS OF COVID19 TEST, PT UNABLE TO RETURN TO [facility] FOR DIALYSIS UNTIL NEGATIVE RESULT. DR FELIX IN TO SEE HER THIS AFTERNOON STATE COVID19 RESULTS CAME BACK NEGATIVE, OK FOR D/C HOME TODAY, PLACE ORDERS. PT STATE SATISFACTION. ORDERS FOR NEW SCRIPTS FAXED TO [employer]/REQUEST. PT SHOWERED, DRESS, GATHER BELONGINGS. D/C INSTRUCT REVIEWED. PT PROVIDED W/C [facility] PLEASANT/APPRECIATIVE.
== END 2019-08-11 18:35 | disposition home or self-care (01) | DRG 291 ==
LOC: ER 23:44 → ICUW 23:45 → MEDS 23:45 → ICUW 08-08 03:24 → MEDS 08-09 12:30
PROVIDERS: Emergency Medicine; Internal Medicine; Internal Medicine Nephrology; ADMIT Internal Medicine
PROC: 5A1D70Z Performance of Urinary Filtration, Intermittent, Less than 6 Hours Per Day (ICD-10-PCS; principal; 2019-08-08)
PROC: 5A1D70Z Performance of Urinary Filtration, Intermittent, Less than 6 Hours Per Day (ICD-10-PCS; 2019-08-09)
PROC: 5A1D70Z Performance of Urinary Filtration, Intermittent, Less than 6 Hours Per Day (ICD-10-PCS; 2019-08-10)
DX: I13.2 Hypertensive heart and chronic kidney disease with heart failure and with stage 5 chronic kidney disease, or end stage renal disease (principal); I50.33 Acute on chronic diastolic (congestive) heart failure; N18.6 End stage renal disease; E87.1 Hypo-osmolality and hyponatremia; N25.81 Secondary hyperparathyroidism of renal origin; J20.9 Acute bronchitis, unspecified; E10.22 Type 1 diabetes mellitus with diabetic chronic kidney disease; E10.65 Type 1 diabetes mellitus with hyperglycemia; Z99.2 Dependence on renal dialysis; D63.1 Anemia in chronic kidney disease; E87.5 Hyperkalemia; R09.81 Nasal congestion; E83.41 Hypermagnesemia; K21.9 Gastro-esophageal reflux disease without esophagitis; E83.39 Other disorders of phosphorus metabolism; I95.9 Hypotension, unspecified; E88.09 Other disorders of plasma-protein metabolism, not elsewhere classified; E03.9 Hypothyroidism, unspecified; E78.5 Hyperlipidemia, unspecified; F41.9 Anxiety disorder, unspecified; E66.9 Obesity, unspecified; Z68.39 Body mass index [BMI] 39.0-39.9, adult; Z79.4 Long term (current) use of insulin; Z87.891 Personal history of nicotine dependence
CPT/HCPCS: 36415; 71045; 80053; 80069; 82533; 82728; 82947; 83540; 83550; 83735; 83930; 84132; 85014; 85018; 85025; 85027; 93005; 93010; 93990; 94640; 94660; 94760; 94762; 96365; 99285-25; A9270-GY; G0257; J0456; J0610; J1644; J1815; J7050; U0003

== ENCOUNTER → 2019-12-21 | Outpatient (CLI) | payer MEDICARE, OTHER ==
[~2019-12-21] MED LIST changes: +BASAGLAR K100 UNIT/2 SC; +BENADRYL25 MG PO; +CALCITRIOL0.5 MC1 PO; +Flonase 0.05% N16 GM; +Fludrocortison0.1 MG PO; +GUAI600T33 PO; +MOTION RELIEF25 MG PO; +NORTHERA300 MG PO; +UBID10; +Vitamin D2000 UNIT PO
[2019-12-21 16:23] LABS: Albumin, Blood 3.6 g/dL (3.4-5.0); Albumin/Globulin Ratio 0.8 (0.8-1.8); Bilirubin, Direct 0.1 mg/dL (0.0-0.3); Bilirubin, Indirect 0.4 mg/dL (0.1-0.7); Bilirubin, Total 0.5 mg/dL (0.1-1.0); Globulin, Blood 4.5 g/dL (2.2-4.0); Total Protein, Blood 8.1 g/dL (6.4-8.2)
[2019-12-22 08:11] LABS: HBSAG SCREEN Negative (Negative); HEP A AB, IGM Negative (Negative); HEP B CORE AB, IGM Negative (Negative); HEP C VIRUS AB <0.1 (0.0-0.9)
== END | disposition home or self-care (01) ==
LOC: LAB 15:58 → LAB SHORT 15:58
PROVIDERS: Internal Medicine Nephrology
DX: R10.9 Unspecified abdominal pain (principal)
CPT/HCPCS: 80074; 80076

== ENCOUNTER → 2020-04-27 | Outpatient (CLI) | payer MEDICARE, OTHER ==
[~2020-04-27] MED LIST changes: +ASPI81CH PO; +BASAGLAR K100 UNIT/1 SC; +BIOTIN1 MG PO; +CLOP75 PO; +PANT20 PO; +Vitamin B Comple1 EA PO
[2020-04-27 16:54] LABS: Hematocrit 26.8 % (33.0-51.0); Hemoglobin 8.8 g/dL (11.5-16.0)
== END | disposition home or self-care (01) ==
LOC: LAB 16:20 → LAB SHORT 16:20
PROVIDERS: Internal Medicine Nephrology
DX: N18.6 End stage renal disease (principal)
CPT/HCPCS: 85014; 85018

== ENCOUNTER 2020-05-05 15:30 | Emergency (ER) | payer MEDICARE, OTHER ==
[~2020-05-05] VITALS: Ht 152.4 cm; Wt 90.7 kg
[~2020-05-05 15:30] MED LIST changes: -BIOTIN1 MG PO; -Vitamin B Comple1 EA PO
[2020-05-05 16:25] LABS: Albumin, Blood 3.6 g/dL (3.4-5.0); Albumin/Globulin Ratio 0.9 (0.8-1.8); Bilirubin, Total 0.3 mg/dL (0.1-1.0); Bun/Creatinine Ratio 6.9 (12.0-20.0); Calcium, Blood 8.9 mg/dL (8.5-10.1); Creatinine, Blood 6.05 mg/dL (0.40-1.00); Globulin, Blood 3.8 g/dL (2.2-4.0); Potassium, Blood 5.3 mmol/L (3.5-5.5); Total Protein, Blood 7.4 g/dL (6.4-8.2)
[2020-05-05 17:12] LABS: BASOPHILS ABSOLUTE AUTO 0.02 K/mm3 (0.00-0.23); BASOPHILS PERCENT AUTO 0 % (0-2); EOSINOPHILS ABSOLUTE AUTO 0.16 K/mm3 (0.00-0.68); EOSINOPHILS PERCENT AUTO 2 % (0-6); Hematocrit 24.5 % (33.0-51.0); Hemoglobin 7.5 g/dL (11.5-16.0); IMMATURE GRAN ABSOLUTE AUTO 0.04 K/mm3 (0.00-0.10); IMMATURE GRAN PERCENT AUTO 1 % (0-1); LYMPHOCYTES ABSOLUTE AUTO 2.31 K/mm3 (0.84-5.20); LYMPHOCYTES PERCENT AUTO 34 % (21-46); MONOCYTES ABSOLUTE AUTO 0.48 K/mm3 (0.16-1.47); MONOCYTES PERCENT AUTO 7 % (4-13); Mean Corpuscular HGB 31.1 pg (26.0-34.0); Mean Corpuscular HGB Conc 30.6 g/dL (31.5-36.5); Mean Corpuscular Volume 102 fL (80-100); Mean Platelet Volume 9.2 fL (9.1-12.4); NEUTROPHILS ABSOLUTE AUTO 3.73 K/mm3 (1.96-9.15); NEUTROPHILS PERCENT AUTO 55 % (41-73); Platelet Count 297 K/mm3 (150-400); RDW Coefficient Variation 14.3 % (11.7-14.2); RDW Standard Deviation 52.6 fL (35.1-46.3); Red Blood Cell Count 2.41 M/mm3 (3.80-5.20); White Blood Cell Count 6.74 K/mm3 (4.00-11.30)
[2020-05-05 17:32] LABS: International Normalized Ratio 1.02; Prothrombin Time Results 10.9 Sec (9.7-11.5)
[2020-05-05] MEDS ORDERED: BIOTIN1 MG PO (20:34)
[2020-05-05 23:32] LABS: BASOPHILS ABSOLUTE AUTO 0.02 K/mm3 (0.00-0.23); BASOPHILS PERCENT AUTO 0 % (0-2); EOSINOPHILS ABSOLUTE AUTO 0.17 K/mm3 (0.00-0.68); EOSINOPHILS PERCENT AUTO 2 % (0-6); Hematocrit 26.3 % (33.0-51.0); Hemoglobin 8.4 g/dL (11.5-16.0); IMMATURE GRAN ABSOLUTE AUTO 0.04 K/mm3 (0.00-0.10); IMMATURE GRAN PERCENT AUTO 1 % (0-1); LYMPHOCYTES ABSOLUTE AUTO 2.72 K/mm3 (0.84-5.20); LYMPHOCYTES PERCENT AUTO 37 % (21-46); MONOCYTES ABSOLUTE AUTO 0.59 K/mm3 (0.16-1.47); MONOCYTES PERCENT AUTO 8 % (4-13); Mean Corpuscular HGB 30.9 pg (26.0-34.0); Mean Corpuscular HGB Conc 31.9 g/dL (31.5-36.5); Mean Platelet Volume 9.1 fL (9.1-12.4); NEUTROPHILS ABSOLUTE AUTO 3.75 K/mm3 (1.96-9.15); NEUTROPHILS PERCENT AUTO 52 % (41-73); Platelet Count 283 K/mm3 (150-400); RDW Coefficient Variation 16.1 % (11.7-14.2); RDW Standard Deviation 56.4 fL (35.1-46.3); Red Blood Cell Count 2.72 M/mm3 (3.80-5.20); White Blood Cell Count 7.29 K/mm3 (4.00-11.30)
[2020-05-05 23:33] LABS: Mean Corpuscular Volume 97 fL (80-100)
[2020-05-05 23:47] LABS: Bun/Creatinine Ratio 7.1 (12.0-20.0); Creatinine, Blood 6.88 mg/dL (0.40-1.00); Potassium, Blood 4.5 mmol/L (3.5-5.5)
== END 2020-05-06 00:19 | disposition home or self-care (01) ==
LOC: ER 15:30
PROVIDERS: Emergency Medicine; Physician Assistant
DX: N93.9 Abnormal uterine and vaginal bleeding, unspecified (principal); N18.9 Chronic kidney disease, unspecified; D64.9 Anemia, unspecified; Z79.4 Long term (current) use of insulin; Z79.899 Other long term (current) drug therapy; Z88.1 Allergy status to other antibiotic agents; Z88.8 Allergy status to other drugs, medicaments and biological substances; Z99.2 Dependence on renal dialysis; Z79.82 Long term (current) use of aspirin
CPT/HCPCS: 36415; 36430; 76830; 76856; 80048; 80053; 85025; 85610; 85730; 86850; 86900; 86901; 86923; 93005; 93010; 99284-25; J7030; P9016

== ENCOUNTER 2020-05-10 07:15 | Day surgery (SDC) | payer MEDICARE, OTHER ==
[~2020-05-10 07:15] MED LIST changes: +BIOTIN1 MG PO
[2020-05-10] MEDS ORDERED: Vitamin B Comple1 EA PO (08:36)
== END 2020-05-10 12:05 | disposition home or self-care (01) ==
LOC: ATC 07:15
DX: E10.22 Type 1 diabetes mellitus with diabetic chronic kidney disease (principal); N18.6 End stage renal disease; D63.1 Anemia in chronic kidney disease
CPT/HCPCS: 36415; 36430; 86850; 86900; 86901; 86923; J7050; P9016

== ENCOUNTER 2020-05-13 18:27 | Emergency (ER) | payer MEDICARE, OTHER ==
[~2020-05-13] VITALS: Ht 152.4 cm; Wt 90.7 kg
[~2020-05-13 18:27] MED LIST changes: +Vitamin B Comple1 EA PO
[2020-05-13 19:09] LABS: BASOPHILS ABSOLUTE AUTO 0.02 K/mm3 (0.00-0.23); BASOPHILS PERCENT AUTO 0 % (0-2); EOSINOPHILS ABSOLUTE AUTO 0.14 K/mm3 (0.00-0.68); EOSINOPHILS PERCENT AUTO 1 % (0-6); Hematocrit 27.6 % (33.0-51.0); Hemoglobin 9.1 g/dL (11.5-16.0); IMMATURE GRAN ABSOLUTE AUTO 0.04 K/mm3 (0.00-0.10); IMMATURE GRAN PERCENT AUTO 0 % (0-1); LYMPHOCYTES ABSOLUTE AUTO 1.94 K/mm3 (0.84-5.20); LYMPHOCYTES PERCENT AUTO 19 % (21-46); MONOCYTES ABSOLUTE AUTO 0.65 K/mm3 (0.16-1.47); MONOCYTES PERCENT AUTO 6 % (4-13); Mean Corpuscular HGB 30.8 pg (26.0-34.0); Mean Corpuscular Volume 94 fL (80-100); Mean Platelet Volume 9.4 fL (9.1-12.4); NEUTROPHILS ABSOLUTE AUTO 7.39 K/mm3 (1.96-9.15); NEUTROPHILS PERCENT AUTO 73 % (41-73); Platelet Count 262 K/mm3 (150-400); RDW Coefficient Variation 14.8 % (11.7-14.2); RDW Standard Deviation 50.3 fL (35.1-46.3); Red Blood Cell Count 2.95 M/mm3 (3.80-5.20); White Blood Cell Count 10.18 K/mm3 (4.00-11.30)
[2020-05-13 19:43] LABS: Albumin, Blood 3.8 g/dL (3.4-5.0); Albumin/Globulin Ratio 1.1 (0.8-1.8); Bilirubin, Total 0.4 mg/dL (0.1-1.0); Bun/Creatinine Ratio 7.8 (12.0-20.0); Calcium, Blood 8.8 mg/dL (8.5-10.1); Creatinine, Blood 8.72 mg/dL (0.40-1.00); Globulin, Blood 3.5 g/dL (2.2-4.0); Potassium, Blood 4.8 mmol/L (3.5-5.5); Total Protein, Blood 7.3 g/dL (6.4-8.2)
== END 2020-05-13 22:59 | disposition home or self-care (01) ==
LOC: ER 18:27
PROVIDERS: Emergency Medicine
DX: N93.9 Abnormal uterine and vaginal bleeding, unspecified (principal); E11.22 Type 2 diabetes mellitus with diabetic chronic kidney disease; N18.6 End stage renal disease; E78.5 Hyperlipidemia, unspecified; E03.9 Hypothyroidism, unspecified; Z99.2 Dependence on renal dialysis; Z79.4 Long term (current) use of insulin; Z87.891 Personal history of nicotine dependence; Z79.02 Long term (current) use of antithrombotics/antiplatelets; Z79.899 Other long term (current) drug therapy; Z88.1 Allergy status to other antibiotic agents; Z88.8 Allergy status to other drugs, medicaments and biological substances
CPT/HCPCS: 36415; 80053; 84703; 85025; 86850; 86900; 86901; 99283

== ENCOUNTER 2020-05-24 08:00 | Day surgery (SDC) | payer MEDICARE, OTHER | END 2020-06-04 22:55 | disposition home or self-care (01) | LOC: ATC 08:00 | DX: I12.0 Hypertensive chronic kidney disease with stage 5 chronic kidney disease or end stage renal disease (principal); E10.22 Type 1 diabetes mellitus with diabetic chronic kidney disease; N18.6 End stage renal disease; D64.9 Anemia, unspecified; E78.5 Hyperlipidemia, unspecified; G47.33 Obstructive sleep apnea (adult) (pediatric); K21.9 Gastro-esophageal reflux disease without esophagitis; Z79.84 Long term (current) use of oral hypoglycemic drugs; Z99.2 Dependence on renal dialysis | CPT/HCPCS: 36415; 86850; 86900; 86901; 86923; J7050; P9016 ==

== ENCOUNTER 2020-05-24 16:42 | Emergency (ER) | payer MEDICARE, OTHER ==
[~2020-05-24] VITALS: Ht 152.4 cm; Wt 90.7 kg
[2020-05-24 17:35] LABS: BASOPHILS ABSOLUTE AUTO 0.01 K/mm3 (0.00-0.23); BASOPHILS PERCENT AUTO 0 % (0-2); EOSINOPHILS ABSOLUTE AUTO 0.15 K/mm3 (0.00-0.68); EOSINOPHILS PERCENT AUTO 2 % (0-6); Hematocrit 24.3 % (33.0-51.0); Hemoglobin 7.9 g/dL (11.5-16.0); IMMATURE GRAN ABSOLUTE AUTO 0.04 K/mm3 (0.00-0.10); IMMATURE GRAN PERCENT AUTO 1 % (0-1); LYMPHOCYTES ABSOLUTE AUTO 1.74 K/mm3 (0.84-5.20); LYMPHOCYTES PERCENT AUTO 25 % (21-46); MONOCYTES ABSOLUTE AUTO 0.55 K/mm3 (0.16-1.47); MONOCYTES PERCENT AUTO 8 % (4-13); Mean Corpuscular HGB 31.5 pg (26.0-34.0); Mean Corpuscular HGB Conc 32.5 g/dL (31.5-36.5); Mean Corpuscular Volume 97 fL (80-100); Mean Platelet Volume 9.2 fL (9.1-12.4); NEUTROPHILS ABSOLUTE AUTO 4.35 K/mm3 (1.96-9.15); NEUTROPHILS PERCENT AUTO 64 % (41-73); Platelet Count 320 K/mm3 (150-400); RDW Coefficient Variation 15.6 % (11.7-14.2); RDW Standard Deviation 53.5 fL (35.1-46.3); Red Blood Cell Count 2.51 M/mm3 (3.80-5.20); White Blood Cell Count 6.84 K/mm3 (4.00-11.30)
[2020-05-24 18:00] LABS: Beta-hydroxybutyrate 5.9 mg/dL (0.2-2.8)
[2020-05-24 18:02] LABS: Albumin, Blood 3.7 g/dL (3.4-5.0); Albumin/Globulin Ratio 1.1 (0.8-1.8); Bilirubin, Total 0.4 mg/dL (0.1-1.0); Bun/Creatinine Ratio 5.9 (12.0-20.0); Calcium, Blood 8.5 mg/dL (8.5-10.1); Creatinine, Blood 7.31 mg/dL (0.40-1.00); Globulin, Blood 3.4 g/dL (2.2-4.0); Potassium, Blood 5.1 mmol/L (3.5-5.5); Total Protein, Blood 7.1 g/dL (6.4-8.2)
== END 2020-05-24 21:42 | disposition home or self-care (01) ==
LOC: ER 16:42
PROVIDERS: Physician Assistant
DX: E11.65 Type 2 diabetes mellitus with hyperglycemia (principal); D62 Acute posthemorrhagic anemia; E78.5 Hyperlipidemia, unspecified; E03.9 Hypothyroidism, unspecified; Z79.02 Long term (current) use of antithrombotics/antiplatelets; Z79.899 Other long term (current) drug therapy; Z79.4 Long term (current) use of insulin; Z88.8 Allergy status to other drugs, medicaments and biological substances; Z87.891 Personal history of nicotine dependence
CPT/HCPCS: 36415; 36430; 71046; 80053; 82010; 82947; 85025; 93005; 93010; 99284-25; A9270; J1815; J2405; J7030; P9016

== ENCOUNTER 2020-05-31 00:18 | Day surgery (SDC) | payer MEDICARE, OTHER | END 2020-05-31 10:54 | disposition home or self-care (01) | LOC: LAB 00:18 → ATC 00:18 | DX: D62 Acute posthemorrhagic anemia (principal); E10.22 Type 1 diabetes mellitus with diabetic chronic kidney disease; I12.0 Hypertensive chronic kidney disease with stage 5 chronic kidney disease or end stage renal disease; N18.6 End stage renal disease; E78.5 Hyperlipidemia, unspecified; I25.10 Atherosclerotic heart disease of native coronary artery without angina pectoris; F41.9 Anxiety disorder, unspecified; F32.9 Major depressive disorder, single episode, unspecified; K21.9 Gastro-esophageal reflux disease without esophagitis; G47.33 Obstructive sleep apnea (adult) (pediatric); Z79.02 Long term (current) use of antithrombotics/antiplatelets; Z99.2 Dependence on renal dialysis; Z79.82 Long term (current) use of aspirin; Z79.4 Long term (current) use of insulin; Z88.1 Allergy status to other antibiotic agents; Z88.8 Allergy status to other drugs, medicaments and biological substances | CPT/HCPCS: 36415; 36430; 86850; 86900; 86901; 86923; J7050; P9016 ==

== ENCOUNTER → 2020-09-20 | Outpatient (CLI) | payer MEDICARE, OTHER ==
[2020-09-20 15:44] LABS: BASOPHILS ABSOLUTE AUTO 0.04 K/mm3 (0.00-0.23); BASOPHILS PERCENT AUTO 0 % (0-2); EOSINOPHILS ABSOLUTE AUTO 0.19 K/mm3 (0.00-0.68); EOSINOPHILS PERCENT AUTO 2 % (0-6); Hematocrit 40.2 % (33.0-51.0); Hemoglobin 12.7 g/dL (11.5-16.0); IMMATURE GRAN ABSOLUTE AUTO 0.05 K/mm3 (0.00-0.10); IMMATURE GRAN PERCENT AUTO 0 % (0-1); LYMPHOCYTES ABSOLUTE AUTO 1.89 K/mm3 (0.84-5.20); LYMPHOCYTES PERCENT AUTO 17 % (21-46); MONOCYTES ABSOLUTE AUTO 0.75 K/mm3 (0.16-1.47); MONOCYTES PERCENT AUTO 7 % (4-13); Mean Corpuscular HGB Conc 31.6 g/dL (31.5-36.5); Mean Corpuscular Volume 98 fL (80-100); Mean Platelet Volume 9.4 fL (9.1-12.4); NEUTROPHILS ABSOLUTE AUTO 8.42 K/mm3 (1.96-9.15); NEUTROPHILS PERCENT AUTO 74 % (41-73); Platelet Count 283 K/mm3 (150-400); RDW Coefficient Variation 15.7 % (11.7-14.2); RDW Standard Deviation 55.8 fL (35.1-46.3); White Blood Cell Count 11.34 K/mm3 (4.00-11.30)
[2020-09-20 15:56] LABS: Albumin, Blood 4.3 g/dL (3.4-5.0); Bilirubin, Total 0.6 mg/dL (0.1-1.0); Bun/Creatinine Ratio 7.5 (12.0-20.0); Calcium, Blood 8.9 mg/dL (8.5-10.1); Creatinine, Blood 6.67 mg/dL (0.40-1.00); Globulin, Blood 4.2 g/dL (2.2-4.0); Total Protein, Blood 8.5 g/dL (6.4-8.2)
== END | disposition home or self-care (01) ==
LOC: LAB SHORT 15:40 → PLD 15:40
PROVIDERS: Physician Assistant Surgical
DX: R10.31 Right lower quadrant pain (principal)
CPT/HCPCS: 80053; 85025

== ENCOUNTER 2020-09-29 14:47 | Emergency (ER) | payer MEDICARE, OTHER ==
[~2020-09-29] VITALS: Ht 152.4 cm; Wt 90.7 kg
[2020-09-29 15:31] LABS: BASOPHILS ABSOLUTE AUTO 0.03 K/mm3 (0.00-0.23); BASOPHILS PERCENT AUTO 0 % (0-2); EOSINOPHILS ABSOLUTE AUTO 0.17 K/mm3 (0.00-0.68); EOSINOPHILS PERCENT AUTO 2 % (0-6); Hematocrit 33.9 % (33.0-51.0); Hemoglobin 10.9 g/dL (11.5-16.0); IMMATURE GRAN ABSOLUTE AUTO 0.12 K/mm3 (0.00-0.10); IMMATURE GRAN PERCENT AUTO 1 % (0-1); LYMPHOCYTES ABSOLUTE AUTO 2.04 K/mm3 (0.84-5.20); LYMPHOCYTES PERCENT AUTO 18 % (21-46); MONOCYTES ABSOLUTE AUTO 0.82 K/mm3 (0.16-1.47); MONOCYTES PERCENT AUTO 7 % (4-13); Mean Corpuscular HGB 32.2 pg (26.0-34.0); Mean Corpuscular HGB Conc 32.2 g/dL (31.5-36.5); Mean Corpuscular Volume 100 fL (80-100); Mean Platelet Volume 8.9 fL (9.1-12.4); NEUTROPHILS ABSOLUTE AUTO 7.91 K/mm3 (1.96-9.15); NEUTROPHILS PERCENT AUTO 71 % (41-73); Platelet Count 362 K/mm3 (150-400); RDW Coefficient Variation 15.7 % (11.7-14.2); RDW Standard Deviation 57.4 fL (35.1-46.3); Red Blood Cell Count 3.39 M/mm3 (3.80-5.20); White Blood Cell Count 11.09 K/mm3 (4.00-11.30)
[2020-09-29 15:58] LABS: Albumin, Blood 3.3 g/dL (3.4-5.0); Albumin/Globulin Ratio 0.8 (0.8-1.8); Bilirubin, Total 0.4 mg/dL (0.1-1.0); Bun/Creatinine Ratio 8.4 (12.0-20.0); Calcium, Blood 7.7 mg/dL (8.5-10.1); Creatinine, Blood 6.22 mg/dL (0.40-1.00); Globulin, Blood 4.2 g/dL (2.2-4.0); Total Protein, Blood 7.5 g/dL (6.4-8.2)
== END 2020-09-29 17:04 | disposition home or self-care (01) ==
LOC: ER 14:47
PROVIDERS: Emergency Medicine
DX: R10.9 Unspecified abdominal pain (principal); R14.0 Abdominal distension (gaseous); E11.9 Type 2 diabetes mellitus without complications; E78.5 Hyperlipidemia, unspecified; E03.9 Hypothyroidism, unspecified; Z79.02 Long term (current) use of antithrombotics/antiplatelets; Z79.899 Other long term (current) drug therapy; Z88.1 Allergy status to other antibiotic agents; Z88.8 Allergy status to other drugs, medicaments and biological substances
CPT/HCPCS: 36415; 80053; 83690; 85025; 99283

== ENCOUNTER 2020-11-22 06:19 | Day surgery (SDC) | payer MEDICARE, OTHER ==
[~2020-11-22] VITALS: Ht 152.4 cm; Wt 94.4 kg
--- NOTE | 2020-11-22 08:01 | NUR ---
11/22/20 0801 Tj Rogers History, Chart, Medications and Allergies reviewed before start of procedure.MONITOR INTACT WITH CONTINUOUS PULSE OXIMETRY AND INTERMITTENT BP.3-LEAD EKG REVIEWED WITH PHYSICIAN PRIOR TO START OF PROCEDURE.O2 VIA N/C INTACT THROUGHOUT SEDATION/PROCEDURE. See Anesthesia record.
--- NOTE | 2020-11-22 08:11 | NUR ---
Ambulatory in [facility] warming gown applied. Patient states colon prep results clear. History, Chart, Medications and Allergies reviewed before start of procedure.Lungs clear T/O to Auscultation. Patient confirms NPO status and agrees with scheduled surgery. Pre-Op teaching done. Pt verbalizes understanding. Patient States Post-Procedure ride home has been arranged.
--- NOTE | 2020-11-22 09:54 | NUR ---
Patient up to Ambulate independently. Gait steady. Discharge instructions reviewed with patient. Patient verbalizes understanding. Copy given to patient to take home. Discharged via wheelchair to private car for ride home.
== END 2020-11-22 23:31 | disposition home or self-care (01) ==
LOC: ORSCMMR 06:19 → ORD 08:00 → ORSCMMR 23:31
PROVIDERS: Internal Medicine Gastroenterology
PROC: 0DBN8ZX Excision of Sigmoid Colon, Via Natural or Artificial Opening Endoscopic, Diagnostic (ICD-10-PCS; principal; 2020-11-22 08:00)
PROC: 0DBL8ZX Excision of Transverse Colon, Via Natural or Artificial Opening Endoscopic, Diagnostic (ICD-10-PCS; principal; 2020-11-22 08:00)
PROC: 0DBK8ZX Excision of Ascending Colon, Via Natural or Artificial Opening Endoscopic, Diagnostic (ICD-10-PCS; principal; 2020-11-22 08:00)
PROC: 0DB68ZX Excision of Stomach, Via Natural or Artificial Opening Endoscopic, Diagnostic (ICD-10-PCS; 2020-11-22 08:00)
PROC: 0DB98ZX Excision of Duodenum, Via Natural or Artificial Opening Endoscopic, Diagnostic (ICD-10-PCS; 2020-11-22 08:00)
DX: K21.9 Gastro-esophageal reflux disease without esophagitis (principal); R93.3 Abnormal findings on diagnostic imaging of other parts of digestive tract; K29.70 Gastritis, unspecified, without bleeding; E11.9 Type 2 diabetes mellitus without complications; I25.2 Old myocardial infarction; G47.30 Sleep apnea, unspecified; R10.9 Unspecified abdominal pain; Z87.11 Personal history of peptic ulcer disease; Z79.82 Long term (current) use of aspirin; Z79.4 Long term (current) use of insulin; Z79.899 Other long term (current) drug therapy
CPT/HCPCS: 36415; 82947; 84703; 88305; 88313; 88342; A9270; J0330; J2250; J2370; J2405; J2704; J7030

== ENCOUNTER → 2021-01-20 | Outpatient (CLI) | payer MEDICARE, OTHER ==
[2021-01-22 18:05] LABS: CORONAVIRUS (COVID19) CSH-NRL Negative (Negative)
== END | disposition home or self-care (01) ==
LOC: LAB SHORT 16:40
PROVIDERS: Physician Assistant
DX: Z20.822 Contact with and (suspected) exposure to COVID-19 (principal)
CPT/HCPCS: U0003

== ENCOUNTER 2021-05-01 14:44 | Emergency (ER) | payer MEDICARE, OTHER ==
[~2021-05-01] VITALS: Ht 152.4 cm; Wt 99.8 kg
[2021-05-01 15:46] LABS: BASOPHILS ABSOLUTE AUTO 0.02 K/mm3 (0.00-0.23); BASOPHILS PERCENT AUTO 0 % (0-2); EOSINOPHILS PERCENT AUTO 3 % (0-6); Hematocrit 33.2 % (33.0-51.0); Hemoglobin 10.5 g/dL (11.5-16.0); IMMATURE GRAN ABSOLUTE AUTO 0.05 K/mm3 (0.00-0.10); IMMATURE GRAN PERCENT AUTO 1 % (0-1); LYMPHOCYTES ABSOLUTE AUTO 1.41 K/mm3 (0.84-5.20); LYMPHOCYTES PERCENT AUTO 18 % (21-46); MONOCYTES ABSOLUTE AUTO 0.45 K/mm3 (0.16-1.47); MONOCYTES PERCENT AUTO 6 % (4-13); Mean Corpuscular HGB 30.2 pg (26.0-34.0); Mean Corpuscular HGB Conc 31.6 g/dL (31.5-36.5); Mean Corpuscular Volume 95 fL (80-100); Mean Platelet Volume 9.6 fL (9.1-12.4); NEUTROPHILS ABSOLUTE AUTO 5.59 K/mm3 (1.96-9.15); NEUTROPHILS PERCENT AUTO 72 % (41-73); Platelet Count 251 K/mm3 (150-400); RDW Coefficient Variation 15.9 % (11.7-14.2); Red Blood Cell Count 3.48 M/mm3 (3.80-5.20); White Blood Cell Count 7.72 K/mm3 (4.00-11.30)
[2021-05-01 16:09] LABS: Troponin I <0.015 ng/mL (0.000-0.040)
[2021-05-01 16:13] LABS: Alanine Aminotransfer (ALT/SGP 20 U/L (12-78); Albumin, Blood 3.6 g/dL (3.4-5.0); Albumin/Globulin Ratio 0.9 (0.8-1.8); Alk Phos 95 U/L (50-136); Anion Gap 13 mmol/L (6-16); Aspartate Aminotrans (AST/SGOT 18 U/L (12-37); Bilirubin, Total 0.5 mg/dL (0.1-1.0); Blood Urea Nitrogen 76 mg/dL (8-24); Bun/Creatinine Ratio 9.3 (12.0-20.0); CO2, Blood 26 mmol/L (21-32); Calcium, Blood 8.3 mg/dL (8.5-10.1); Chloride, Blood 94 mmol/L (98-108); Creatinine, Blood 8.16 mg/dL (0.40-1.00); Globulin, Blood 3.9 g/dL (2.2-4.0); Glomerular Filtration Rate 5 (60-); Glucose, Blood 348 mg/dL (70-99); Potassium, Blood 5.4 mmol/L (3.5-5.5); Sodium, Blood 133 mmol/L (136-145); Total Protein, Blood 7.5 g/dL (6.4-8.2)
== END 2021-05-01 18:14 | disposition home or self-care (01) ==
LOC: ER 14:44
PROVIDERS: Emergency Medicine
DX: R07.89 Other chest pain (principal); E78.5 Hyperlipidemia, unspecified; E03.9 Hypothyroidism, unspecified; E11.9 Type 2 diabetes mellitus without complications; Z87.891 Personal history of nicotine dependence
CPT/HCPCS: 36415; 71046; 80053; 84484; 85025; 93005; 93010; 99285-25

== ENCOUNTER 2021-06-08 15:02 | Emergency (ER) | payer MEDICARE, OTHER ==
[~2021-06-08] VITALS: Ht 152.4 cm; Wt 99.8 kg
[2021-06-08 16:32] LABS: BASOPHILS ABSOLUTE AUTO 0.02 K/mm3 (0.00-0.23); BASOPHILS PERCENT AUTO 0 % (0-2); EOSINOPHILS ABSOLUTE AUTO 0.21 K/mm3 (0.00-0.68); EOSINOPHILS PERCENT AUTO 2 % (0-6); Hematocrit 31.8 % (33.0-51.0); Hemoglobin 9.9 g/dL (11.5-16.0); IMMATURE GRAN ABSOLUTE AUTO 0.09 K/mm3 (0.00-0.10); IMMATURE GRAN PERCENT AUTO 1 % (0-1); LYMPHOCYTES ABSOLUTE AUTO 1.09 K/mm3 (0.84-5.20); LYMPHOCYTES PERCENT AUTO 11 % (21-46); MONOCYTES ABSOLUTE AUTO 0.54 K/mm3 (0.16-1.47); MONOCYTES PERCENT AUTO 5 % (4-13); Mean Corpuscular HGB 30.5 pg (26.0-34.0); Mean Corpuscular HGB Conc 31.1 g/dL (31.5-36.5); Mean Corpuscular Volume 98 fL (80-100); NEUTROPHILS ABSOLUTE AUTO 8.05 K/mm3 (1.96-9.15); NEUTROPHILS PERCENT AUTO 81 % (41-73); Platelet Count 257 K/mm3 (150-400); RDW Coefficient Variation 16.1 % (11.7-14.2); RDW Standard Deviation 58.2 fL (35.1-46.3); Red Blood Cell Count 3.25 M/mm3 (3.80-5.20)
[2021-06-08 16:56] LABS: Albumin, Blood 3.4 g/dL (3.4-5.0); Albumin/Globulin Ratio 0.8 (0.8-1.8); Bilirubin, Total 0.7 mg/dL (0.1-1.0); Bun/Creatinine Ratio 6.4 (12.0-20.0); Calcium, Blood 8.2 mg/dL (8.5-10.1); Creatinine, Blood 7.15 mg/dL (0.40-1.00); Globulin, Blood 4.4 g/dL (2.2-4.0); Total Protein, Blood 7.8 g/dL (6.4-8.2)
== END 2021-06-08 19:30 | disposition home or self-care (01) ==
LOC: ER 15:02
PROVIDERS: Student in an Organized Health Care Education/Training Program
DX: U07.1 COVID-19 (principal); E11.9 Type 2 diabetes mellitus without complications; Z87.891 Personal history of nicotine dependence; Z79.82 Long term (current) use of aspirin; Z79.01 Long term (current) use of anticoagulants; Z79.899 Other long term (current) drug therapy; Z88.1 Allergy status to other antibiotic agents; Z88.8 Allergy status to other drugs, medicaments and biological substances; Z91.09 Other allergy status, other than to drugs and biological substances
CPT/HCPCS: 36415; 71045; 80053; 84484; 85025; 93005; 93010; 99285-25; M0247

== ENCOUNTER 2021-08-13 13:14 | Emergency (ER) | payer MEDICARE, OTHER ==
[~2021-08-13] VITALS: Ht 152.4 cm; Wt 93.9 kg
[2021-08-13 13:52] LABS: BASOPHILS ABSOLUTE AUTO 0.03 K/mm3 (0.00-0.23); BASOPHILS PERCENT AUTO 0 % (0-2); EOSINOPHILS ABSOLUTE AUTO 0.11 K/mm3 (0.00-0.68); EOSINOPHILS PERCENT AUTO 1 % (0-6); Hematocrit 40.6 % (33.0-51.0); Hemoglobin 12.3 g/dL (11.5-16.0); IMMATURE GRAN ABSOLUTE AUTO 0.04 K/mm3 (0.00-0.10); IMMATURE GRAN PERCENT AUTO 1 % (0-1); LYMPHOCYTES ABSOLUTE AUTO 1.56 K/mm3 (0.84-5.20); LYMPHOCYTES PERCENT AUTO 20 % (21-46); MONOCYTES PERCENT AUTO 8 % (4-13); Mean Corpuscular HGB 31.3 pg (26.0-34.0); Mean Corpuscular HGB Conc 30.3 g/dL (31.5-36.5); Mean Corpuscular Volume 103 fL (80-100); Mean Platelet Volume 8.8 fL (9.1-12.4); NEUTROPHILS ABSOLUTE AUTO 5.55 K/mm3 (1.96-9.15); NEUTROPHILS PERCENT AUTO 70 % (41-73); Platelet Count 289 K/mm3 (150-400); RDW Coefficient Variation 15.9 % (11.7-14.2); RDW Standard Deviation 61.1 fL (35.1-46.3); Red Blood Cell Count 3.93 M/mm3 (3.80-5.20); White Blood Cell Count 7.89 K/mm3 (4.00-11.30)
[2021-08-13 14:10] LABS: Albumin/Globulin Ratio 0.9 (0.8-1.8); Bilirubin, Total 0.4 mg/dL (0.1-1.0); Bun/Creatinine Ratio 6.8 (12.0-20.0); Calcium, Blood 8.5 mg/dL (8.5-10.1); Creatinine, Blood 7.23 mg/dL (0.40-1.00); Globulin, Blood 4.3 g/dL (2.2-4.0); Potassium, Blood 5.1 mmol/L (3.5-5.5); Total Protein, Blood 8.3 g/dL (6.4-8.2)
[2021-08-13] MEDS ORDERED: MICO100S VAG (17:38)
== END 2021-08-13 17:51 | disposition home or self-care (01) ==
LOC: ER 13:14
PROVIDERS: Physician Assistant
DX: N83.201 Unspecified ovarian cyst, right side (principal); N83.202 Unspecified ovarian cyst, left side; N18.6 End stage renal disease; E11.22 Type 2 diabetes mellitus with diabetic chronic kidney disease; B37.3 Candidiasis of vulva and vagina; Z99.2 Dependence on renal dialysis; Z88.1 Allergy status to other antibiotic agents; Z88.8 Allergy status to other drugs, medicaments and biological substances; Z79.4 Long term (current) use of insulin; Z87.891 Personal history of nicotine dependence; Z79.899 Other long term (current) drug therapy
CPT/HCPCS: 36415; 74176; 80053; 83690; 85025; A9270

== ENCOUNTER 2021-09-03 19:38 | Emergency (ER) | payer MEDICARE, OTHER ==
[~2021-09-03] VITALS: Ht 152.4 cm; Wt 93.9 kg
[~2021-09-03 19:38] MED LIST changes: +MICO100S VAG
[2021-09-03 20:11] LABS: BASOPHILS ABSOLUTE AUTO 0.03 K/mm3 (0.00-0.23); BASOPHILS PERCENT AUTO 0 % (0-2); EOSINOPHILS ABSOLUTE AUTO 0.15 K/mm3 (0.00-0.68); EOSINOPHILS PERCENT AUTO 2 % (0-6); Hematocrit 41.3 % (33.0-51.0); Hemoglobin 13.1 g/dL (11.5-16.0); IMMATURE GRAN ABSOLUTE AUTO 0.06 K/mm3 (0.00-0.10); IMMATURE GRAN PERCENT AUTO 1 % (0-1); LYMPHOCYTES ABSOLUTE AUTO 1.71 K/mm3 (0.84-5.20); LYMPHOCYTES PERCENT AUTO 23 % (21-46); MONOCYTES ABSOLUTE AUTO 0.92 K/mm3 (0.16-1.47); MONOCYTES PERCENT AUTO 12 % (4-13); Mean Corpuscular HGB 31.6 pg (26.0-34.0); Mean Corpuscular HGB Conc 31.7 g/dL (31.5-36.5); Mean Corpuscular Volume 100 fL (80-100); Mean Platelet Volume 9.1 fL (9.1-12.4); NEUTROPHILS ABSOLUTE AUTO 4.74 K/mm3 (1.96-9.15); NEUTROPHILS PERCENT AUTO 62 % (41-73); Platelet Count 267 K/mm3 (150-400); RDW Coefficient Variation 16.6 % (11.7-14.2); Red Blood Cell Count 4.15 M/mm3 (3.80-5.20); White Blood Cell Count 7.61 K/mm3 (4.00-11.30)
[2021-09-03 20:44] LABS: Albumin/Globulin Ratio 0.9 (0.8-1.8); Bilirubin, Total 0.5 mg/dL (0.1-1.0); Bun/Creatinine Ratio 8.3 (12.0-20.0); Calcium, Blood 8.2 mg/dL (8.5-10.1); Creatinine, Blood 8.44 mg/dL (0.40-1.00); Globulin, Blood 4.6 g/dL (2.2-4.0); Potassium, Blood 4.5 mmol/L (3.5-5.5); Total Protein, Blood 8.6 g/dL (6.4-8.2)
== END 2021-09-03 23:07 | disposition home or self-care (01) ==
LOC: ER 19:38
PROVIDERS: Physician Assistant
DX: I95.9 Hypotension, unspecified (principal); E11.22 Type 2 diabetes mellitus with diabetic chronic kidney disease; N18.6 End stage renal disease; F41.9 Anxiety disorder, unspecified; Z87.891 Personal history of nicotine dependence; Z88.1 Allergy status to other antibiotic agents; Z88.8 Allergy status to other drugs, medicaments and biological substances; Z79.4 Long term (current) use of insulin; Z79.82 Long term (current) use of aspirin; Z79.899 Other long term (current) drug therapy; Z79.02 Long term (current) use of antithrombotics/antiplatelets; Z99.2 Dependence on renal dialysis
CPT/HCPCS: 36415; 71045; 80053; 84484; 85025; 93005; 93010; A9270; J7030

== ENCOUNTER → 2021-09-17 | Outpatient (CLI) | payer MEDICARE, OTHER ==
[2021-09-18 09:43] LABS: Candida species (DNA Probe) Negative (NEGATIVE); G. vaginalis (DNA Probe) Negative (NEGATIVE); T. vaginalis (DNA Probe) Negative (NEGATIVE)
== END | disposition home or self-care (01) ==
LOC: LAB 16:39 → LAB SHORT 16:39
PROVIDERS: Advanced Practice Midwife
DX: N89.8 Other specified noninflammatory disorders of vagina (principal)
CPT/HCPCS: 87480; 87510; 87660

== ENCOUNTER → 2021-10-22 | Outpatient (CLI) | payer MEDICARE, OTHER ==
[~2021-10-22] MED LIST changes: +Aspir 8181 MG PO; +Calcium Carbon500 MG PO; +OMEP20ER PO
[2021-10-23 10:32] LABS: Candida species (DNA Probe) Negative (NEGATIVE); G. vaginalis (DNA Probe) Negative (NEGATIVE); T. vaginalis (DNA Probe) Negative (NEGATIVE)
== END | disposition home or self-care (01) ==
LOC: LAB SHORT 15:15 → LAB 15:15
PROVIDERS: Nurse Practitioner Family
DX: L29.3 Anogenital pruritus, unspecified (principal)
CPT/HCPCS: 87480; 87510; 87660

== ENCOUNTER 2021-11-26 17:49 | Emergency (ER) | payer MEDICARE, OTHER ==
[~2021-11-26] VITALS: Ht 152.4 cm; Wt 97.5 kg
[~2021-11-26 17:49] MED LIST changes: -Aspir 8181 MG PO; -Calcium Carbon500 MG PO; -OMEP20ER PO
[2021-11-26 18:38] LABS: BASOPHILS ABSOLUTE AUTO 0.03 K/mm3 (0.00-0.23); BASOPHILS PERCENT AUTO 0 % (0-2); EOSINOPHILS ABSOLUTE AUTO 0.09 K/mm3 (0.00-0.68); EOSINOPHILS PERCENT AUTO 1 % (0-6); Hematocrit 34.1 % (33.0-51.0); Hemoglobin 10.8 g/dL (11.5-16.0); IMMATURE GRAN ABSOLUTE AUTO 0.06 K/mm3 (0.00-0.10); IMMATURE GRAN PERCENT AUTO 1 % (0-1); LYMPHOCYTES ABSOLUTE AUTO 1.51 K/mm3 (0.84-5.20); LYMPHOCYTES PERCENT AUTO 17 % (21-46); MONOCYTES ABSOLUTE AUTO 0.65 K/mm3 (0.16-1.47); MONOCYTES PERCENT AUTO 7 % (4-13); Mean Corpuscular HGB 31.2 pg (26.0-34.0); Mean Corpuscular HGB Conc 31.7 g/dL (31.5-36.5); Mean Corpuscular Volume 99 fL (80-100); Mean Platelet Volume 8.9 fL (9.1-12.4); NEUTROPHILS ABSOLUTE AUTO 6.41 K/mm3 (1.96-9.15); NEUTROPHILS PERCENT AUTO 73 % (41-73); Platelet Count 268 K/mm3 (150-400); RDW Coefficient Variation 16.7 % (11.7-14.2); RDW Standard Deviation 60.3 fL (35.1-46.3); Red Blood Cell Count 3.46 M/mm3 (3.80-5.20); White Blood Cell Count 8.75 K/mm3 (4.00-11.30)
[2021-11-26 18:56] LABS: Magnesium, Blood 2.9 mg/dL (1.6-2.4)
[2021-11-26 19:17] LABS: Albumin, Blood 3.6 g/dL (3.4-5.0); Albumin/Globulin Ratio 0.9 (0.8-1.8); Bilirubin, Total 0.3 mg/dL (0.1-1.0); Bun/Creatinine Ratio 7.3 (12.0-20.0); Calcium, Blood 8.1 mg/dL (8.5-10.1); Creatinine, Blood 7.72 mg/dL (0.40-1.00); Potassium, Blood 4.2 mmol/L (3.5-5.5); Total Protein, Blood 7.6 g/dL (6.4-8.2)
[2021-11-26 19:36] LABS: Influenza A, PCR NEGATIVE (NEGATIVE); Influenza B, PCR NEGATIVE (NEGATIVE); Resp Syncytial Virus, PCR NEGATIVE (NEGATIVE); SARS-Cov-2 (COVID-19) PCR, MMC NEGATIVE (NEGATIVE)
== END 2021-11-26 23:01 | disposition home or self-care (01) ==
LOC: ER 17:49
PROVIDERS: Student in an Organized Health Care Education/Training Program
DX: R53.1 Weakness (principal); E83.41 Hypermagnesemia; R07.89 Other chest pain; R20.0 Anesthesia of skin; E03.9 Hypothyroidism, unspecified; E11.22 Type 2 diabetes mellitus with diabetic chronic kidney disease; N18.6 End stage renal disease; Z99.2 Dependence on renal dialysis; Z87.891 Personal history of nicotine dependence; Z79.4 Long term (current) use of insulin; Z79.82 Long term (current) use of aspirin; Z79.899 Other long term (current) drug therapy; Z79.02 Long term (current) use of antithrombotics/antiplatelets; Z88.8 Allergy status to other drugs, medicaments and biological substances; Z88.1 Allergy status to other antibiotic agents; Z20.822 Contact with and (suspected) exposure to COVID-19
CPT/HCPCS: 0241U; 36415; 71046; 80053; 83735; 84484; 85025; 93005; 93010; 99285-25

== ENCOUNTER 2022-01-07 14:59 | Observation (INO) | payer MEDICARE, OTHER ==
[~2022-01-07] VITALS: Ht 152.4 cm; Wt 100.1 kg
[2022-01-07] MEDS ORDERED: Aspir 8181 MG PO (15:31)
[2022-01-07] MEDS ORDERED: SERT100 PO (15:31)
[2022-01-07 16:37] LABS: BASOPHILS ABSOLUTE AUTO 0.03 K/mm3 (0.00-0.23); BASOPHILS PERCENT AUTO 0 % (0-2); EOSINOPHILS PERCENT AUTO 1 % (0-6); Hematocrit 37.9 % (33.0-51.0); Hemoglobin 12.2 g/dL (11.5-16.0); IMMATURE GRAN ABSOLUTE AUTO 0.08 K/mm3 (0.00-0.10); IMMATURE GRAN PERCENT AUTO 1 % (0-1); LYMPHOCYTES ABSOLUTE AUTO 1.92 K/mm3 (0.84-5.20); LYMPHOCYTES PERCENT AUTO 22 % (21-46); MONOCYTES ABSOLUTE AUTO 0.77 K/mm3 (0.16-1.47); MONOCYTES PERCENT AUTO 9 % (4-13); Mean Corpuscular HGB 31.7 pg (26.0-34.0); Mean Corpuscular HGB Conc 32.2 g/dL (31.5-36.5); Mean Corpuscular Volume 98 fL (80-100); Mean Platelet Volume 8.8 fL (9.1-12.4); NEUTROPHILS ABSOLUTE AUTO 5.86 K/mm3 (1.96-9.15); NEUTROPHILS PERCENT AUTO 67 % (41-73); Platelet Count 328 K/mm3 (150-400); RDW Coefficient Variation 16.9 % (11.7-14.2); RDW Standard Deviation 61.4 fL (35.1-46.3); Red Blood Cell Count 3.85 M/mm3 (3.80-5.20); White Blood Cell Count 8.76 K/mm3 (4.00-11.30)
[2022-01-07 16:55] LABS: Alanine Aminotransfer (ALT/SGP 19 U/L (12-78); Albumin, Blood 3.9 g/dL (3.4-5.0); Albumin/Globulin Ratio 0.9 (0.8-1.8); Alk Phos 86 U/L (50-136); Anion Gap 10 mmol/L (6-16); Aspartate Aminotrans (AST/SGOT 19 U/L (12-37); Bilirubin, Total 0.3 mg/dL (0.1-1.0); Blood Urea Nitrogen 48 mg/dL (8-24); Bun/Creatinine Ratio 6.7 (12.0-20.0); CO2, Blood 32 mmol/L (21-32); Calcium, Blood 8.8 mg/dL (8.5-10.1); Chloride, Blood 92 mmol/L (98-108); Creatinine, Blood 7.19 mg/dL (0.40-1.00); Globulin, Blood 4.3 g/dL (2.2-4.0); Glomerular Filtration Rate 7 (60-); Glucose, Blood 138 mg/dL (70-99); Magnesium, Blood 2.5 mg/dL (1.6-2.4); Potassium, Blood 4.1 mmol/L (3.5-5.5); Sodium, Blood 134 mmol/L (136-145); Total Protein, Blood 8.2 g/dL (6.4-8.2)
[2022-01-07 17:13] LABS: Influenza A, PCR NEGATIVE (NEGATIVE); Influenza B, PCR NEGATIVE (NEGATIVE); Resp Syncytial Virus, PCR NEGATIVE (NEGATIVE); SARS-Cov-2 (COVID-19) PCR, MMC NEGATIVE (NEGATIVE)
[2022-01-07 21:34] LABS: Ethanol (Alcohol), Blood, Med <3 mg/dL
[2022-01-07 21:36] LABS: Acetaminophen, Random <2.0 ug/mL (10.0-30.0)
[2022-01-08 18:00] LABS: Bun/Creatinine Ratio 7.4 (12.0-20.0); Calcium, Blood 8.6 mg/dL (8.5-10.1); Creatinine, Blood 5.97 mg/dL (0.40-1.00); Potassium, Blood 4.4 mmol/L (3.5-5.5)
[2022-01-08 19:24] LABS: Percent Saturation 25.4 % (15.0-50.0)
[2022-01-08] MEDS ORDERED: OMEP20ER PO (22:23)
[2022-01-08] MEDS ORDERED: Calcium Carbon500 MG PO (22:23)
[2022-01-09 04:13] LABS: Hematocrit 33.1 % (33.0-51.0); Hemoglobin 10.4 g/dL (11.5-16.0)
[2022-01-09 04:39] LABS: Albumin, Blood 3.1 g/dL (3.4-5.0); Anion Gap 12 mmol/L (6-16); Blood Urea Nitrogen 53 mg/dL (8-24); Bun/Creatinine Ratio 7.7 (12.0-20.0); CO2, Blood 28 mmol/L (21-32); Calcium, Blood 7.8 mg/dL (8.5-10.1); Chloride, Blood 90 mmol/L (98-108); Creatinine, Blood 6.89 mg/dL (0.40-1.00); Glomerular Filtration Rate 7 (60-); Glucose, Blood 464 mg/dL (70-99); Magnesium, Blood 2.3 mg/dL (1.6-2.4); Phosphorus, Blood 6.3 mg/dL (2.5-4.9); Potassium, Blood 5.3 mmol/L (3.5-5.5); Sodium, Blood 130 mmol/L (136-145)
--- NOTE | 2022-01-09 05:13 | NUR ---
SHIFT SUMMARY PT ARRIVED TO PCU FROM ED VIA WHEELCHAIR AT APPROX 2100. SITTER ACCOMPANIED PT. PT ALERT, PLEASANT. SP02>90% ON RA. CPAP AT NOC. MEDICAL STATUS NO TELE. BP LOW, PT STATES AND PER ER REPORT THIS IS NORMAL FOR PT. PT STATES SHE HAS THOUGHT ABOUT TAKING HER LIFE RECENTLY BUT NOW DOES NOT HAVE A DESIRE TO. PT STATES, "BUT I WOULDN'T MIND IF SOMEONE DID FOR ME". PT OPEN TO TALKING TO PASTORAL STAFF AND PSYCH, WANTING TO GET HELP. PT SLEPT ALL NIGHT. CALL LIGHT IN REACH.
[2022-01-09 08:47] LABS: Glucose, Blood 692 mg/dL (70-99)
[2022-01-09 10:29] LABS: Glucose, Blood 600 mg/dL (70-99)
--- NOTE | 2022-01-09 12:43 | NUR ---
DIALYSIS PRE TX NOTE INFORMED DR GONZALEZ OF PATIENTS PRE TX BP. VO OBTAINED TO RUN BP IN 70/40'S IF ASYMTOMATIC.
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
--- NOTE | 2022-01-09 14:02 | NUR ---
[employer] SALES NOTE HD TX TERMINATED EARLY PER PT REQUEST FOR BATHROOM PRIVLEDGES
--- NOTE | 2022-01-09 17:56 | NUR ---
ASSUMED CARE OF THIS PT. SHE WAS TRANSFERED FROM PCU THIS AFTERNOON. ORIENTED TO THE ROOM. HER CALL LIGHT IS WITHIN REACH. BED IN THE LOW POSITION. SHE DENIES ANY SI AT THIS TIME.
--- NOTE | 2022-01-10 03:09 | NUR ---
REFRIGERATING ENGINEER SUMMARY ALERT AND ORIENTED. AFFECT PLEASANT WHEN CONVERSING. WAS ON SI BEFORE ADMISSION TO FLOOR. NO SAID PRECAUTIONS AT THIS TIME. NO VOICED SI/INTENTIONS REMAINS ON CAMERA FOR SAFETY. NO NOTED S/S ACUTE DISTRESS. BP LOW BUT PT VOICED THAT IS NORMAL FOR HER. OTHERWISE VSS. HAS BEEN RESTING QUIETLY WITH FEW INTERRUPTIONS. CALL LIGHT IN REACH. CPAP IN USE. WILL CONTINUE TO MONITOR
[2022-01-10 05:53] LABS: Hematocrit 32.4 % (33.0-51.0); Hemoglobin 10.2 g/dL (11.5-16.0)
--- NOTE | 2022-01-10 05:53 | NUR ---
DR GONZALEZ (RENAL MD) IN TO VISIT. CALL LIGHT IN REACH
--- NOTE | 2022-01-10 06:03 | NUR ---
BP 80/43. STATED THAT THIS IS HER NORMAL. LEGS ELEVATED. ASYMPTOMATC. CALL LIGHT IN REACH
[2022-01-10 06:13] LABS: Albumin, Blood 3.2 g/dL (3.4-5.0); Anion Gap 12 mmol/L (6-16); Blood Urea Nitrogen 68 mg/dL (8-24); Bun/Creatinine Ratio 8.9 (12.0-20.0); CO2, Blood 29 mmol/L (21-32); Calcium, Blood 7.8 mg/dL (8.5-10.1); Chloride, Blood 90 mmol/L (98-108); Creatinine, Blood 7.67 mg/dL (0.40-1.00); Glomerular Filtration Rate 6 (60-); Glucose, Blood 392 mg/dL (70-99); Magnesium, Blood 2.4 mg/dL (1.6-2.4); Phosphorus, Blood 5.8 mg/dL (2.5-4.9); Potassium, Blood 4.9 mmol/L (3.5-5.5); Sodium, Blood 131 mmol/L (136-145)
[2022-01-10 08:46] LABS: Glucose, Blood 493 mg/dL (70-99)
[2022-01-11 05:29] LABS: Hematocrit 33.6 % (33.0-51.0); Hemoglobin 10.6 g/dL (11.5-16.0)
[2022-01-11 05:53] LABS: Albumin, Blood 3.9 g/dL (3.4-5.0); Anion Gap 10 mmol/L (6-16); Blood Urea Nitrogen 51 mg/dL (8-24); Bun/Creatinine Ratio 7.5 (12.0-20.0); CO2, Blood 29 mmol/L (21-32); Calcium, Blood 8.1 mg/dL (8.5-10.1); Chloride, Blood 92 mmol/L (98-108); Creatinine, Blood 6.78 mg/dL (0.40-1.00); Glomerular Filtration Rate 7 (60-); Glucose, Blood 260 mg/dL (70-99); Magnesium, Blood 2.6 mg/dL (1.6-2.4); Phosphorus, Blood 5.6 mg/dL (2.5-4.9); Potassium, Blood 4.6 mmol/L (3.5-5.5); Sodium, Blood 131 mmol/L (136-145)
--- NOTE | 2022-01-11 06:23 | NUR ---
SHIFT SUMMARY ADMITTED FOR SI. FULL CODE. PLAN IS FOR DC HOME ON THURSDAY. SHE DENIES SI. SHE IS ESRD AND A DIALYSIS PT. SHE RUNS HYPOTENSIVE. I DID CALL HOSPITALIST FOR A LOW BP THIS MORNING. I WILL ADMIN A BOLUS OF NS WHEN PHARMACY APPROVES. SHE IS ASYMPTOMATIC AND A&O X4 AT THIS TIME. FISTULA IN RT ARM. DIALYSIS GIVEN YESTERDAY. SHE USES HER HOME CPAP AT NIGHT. MONITORING GLUCOSE LEVELS THEY HAVE FLUCTUATED. SHE IS ACHS. SHE HAS AN INSULIN PUMP THAT IS CURRENTLY TURNED OFF.
--- NOTE | 2022-01-11 18:20 | NUR ---
SHIFT SUMMARY HYPOTENSION THIS AM. [address] DUMONT AWARE OF PRESSURES THIS AM. AFTERNOON BPS IMPROVED. PG PLACED BY ICU NURSE, RAHUL. PT WATCHED HOCUS POCUS 2 ON HER PHONE IN BED. MEDICATED ONCE FOR ANXIETY PER EMAR. SHOWERED THIS AFTERNOON. PT DENIED DIZZINESS OR LIGHTHEADEDNESS T/O SHIFT. NO OTHER ACUTE CHANGES IN ASSESSMENT AT THIS TIME. 2MD HOLD STILL IN PLACE. CALL LIGHT IN REACH. DENIES OTHER NEEDS AT THIS TIME.
--- NOTE | 2022-01-12 03:51 | NUR ---
SUMMARY: PATIENT AOX4, INDEPENDENT IN ROOM. BP STABLE THROUGHOUT SHIFT. PATIENT REPORTED HAVING RESTLESS LEGS BUT RESOLVED AFTER NIGHT TIME MEDS. PATIENT WORE BIPAP WHILE SLEEPING. NO COMLAINTS OF DIZZINESS, LIGHTHEADEDNESS, OR ACTIVE THOUGHT OF HARMING HERSELF THROUGHOUT SHIFT. PATIENT STILL WITH INPATIENT LEGAL HOLD.
[2022-01-12 05:50] LABS: Hematocrit 30.5 % (33.0-51.0); Hemoglobin 10.1 g/dL (11.5-16.0)
[2022-01-12 06:28] LABS: Magnesium, Blood 2.6 mg/dL (1.6-2.4)
[2022-01-12 06:41] LABS: Albumin, Blood 3.5 g/dL (3.4-5.0); Anion Gap 13 mmol/L (6-16); Blood Urea Nitrogen 74 mg/dL (8-24); Bun/Creatinine Ratio 8.6 (12.0-20.0); CO2, Blood 28 mmol/L (21-32); Calcium, Blood 7.8 mg/dL (8.5-10.1); Chloride, Blood 92 mmol/L (98-108); Creatinine, Blood 8.63 mg/dL (0.40-1.00); Glomerular Filtration Rate 5 (60-); Glucose, Blood 294 mg/dL (70-99); Phosphorus, Blood 6.7 mg/dL (2.5-4.9); Potassium, Blood 4.3 mmol/L (3.5-5.5); Sodium, Blood 133 mmol/L (136-145)
--- NOTE | 2022-01-12 06:48 | NUR ---
CRITICAL JENN LEVEL [phone] GONZALEZ
[2022-01-12] MEDS ORDERED: Nexium40 MG PO (08:22)
--- NOTE | 2022-01-12 16:06 | NUR ---
SHIFT SUMMARY PT RECIEVED DIALYSIS TODAY. ALBUMIN RECIEVED DURING DIALYSIS. PT MEDICATED WITH ATARAX TODAY FOR ANXIETY. PT STATES SHE THINKS IT HELPED, BUT HAS ALSO MADE HER MORE DROWZY. NO OTHER ACUTE CHANGES IN ASSESSMENT AT THIS TIME. VS REVIEWED. PT RESTING IN BED. CALL LIGHT IN REACH. DENIES OTHER NEEDS AT THIS TIME.
--- NOTE | 2022-01-13 05:16 | NUR ---
SUMMARY: PATIENT DID WELL THIS SHIFT. REPORTS OF INCREASED ANXIETY AT BEGINGING OF SHIFT, PRN ATARAX GIVEN. PATIENT WORE HOME CPAP MACHINE WHILE SLEEPING. PATIENT DENIES ACTIVE THOUGHTS OF HARMING HERSELF. BP LOW THIS MORNING. NOTIFIED PROVIDER. THEY STATED TO CHECK AGAIN IN 30 MINUTES. BP 83/57 WHEN RECHECKED, MAP OVER 67 SO STABLE AT THIS TIME. PATIENT POWER GLIDE IV DIFFICULT TO FLUSH. REPOSITIONED CATHETER AND CHANGED DRESSING THIS AM USING STERILE TECHNIQUE. IV NOW FLUSHING.
[2022-01-13 06:06] LABS: Hematocrit 29.3 % (33.0-51.0)
[2022-01-13 06:20] LABS: Albumin, Blood 3.9 g/dL (3.4-5.0); Anion Gap 11 mmol/L (6-16); Blood Urea Nitrogen 59 mg/dL (8-24); Bun/Creatinine Ratio 7.9 (12.0-20.0); CO2, Blood 26 mmol/L (21-32); Calcium, Blood 8.1 mg/dL (8.5-10.1); Chloride, Blood 99 mmol/L (98-108); Creatinine, Blood 7.44 mg/dL (0.40-1.00); Glomerular Filtration Rate 6 (60-); Glucose, Blood 190 mg/dL (70-99); Magnesium, Blood 2.6 mg/dL (1.6-2.4); Phosphorus, Blood 6.3 mg/dL (2.5-4.9); Potassium, Blood 4.1 mmol/L (3.5-5.5); Sodium, Blood 136 mmol/L (136-145)
--- NOTE | 2022-01-13 09:27 | NUR ---
THIS MORNING PATIENT WAS TALKING ABOUT HER MENTAL HEALTH SYMPTOMS. STATES ANXIETY IS SEVERE. TALKS ABOUT THE ATARAX THAT IS NEWLY PRESCRIBED AND SAYS THAT IT WORKS FOR A BRIEF TIME, BUT THEN HER ANXIETY COMES BACK WITH AVANGENCE. SHE SAYS THAT WHEN THE ANXIETY INCREASES, THAT IS WHEN SHE STARTS TO HAVE 'THOSE BAD THOUGHTS'. THIS WEB CONTENT MANAGER ASKED HER IF SHE WAS THINKING OF SUICIDE AND SHE DESCRIBES HER THOUGHTS THIS- "I DON'T WANT TO DO ANYTHING TO MYSELF, BUT I WISH THAT I'D GET RAN OVER". SHE SAYS HER FEELINGS ARE DESIRE TO JUST NOT BE HERE ANYMORE, BUT NOT ACTUALLY KILLING HERSELF. SHE BELIEVES THAT SHE IS GOING TO SEE DR. BETTENCOURT TODAY AND SHE SAID THAT SHE WOULD LET HIM KNOW. SHE WAS TEARFUL DURING THAT SI ASSESSMENT, BUT AFTERWARD WAS SMILING AND TALKING WITH THIS NURSE ABOUT OTHER THINGS. SHE HAS HAD A NUMBER OF DEATHS OF CLOSE FAMILY/FRIENDS AND APPEARS TO BE FULL OF GRIEF. SHE STATES THAT SHE KNOWS SHE NEEDS TO BE HERE FOR HER DAUGHTER AND BECASUE OF THAT WANTS TO GET BETTER.
--- NOTE | 2022-01-13 13:30 | NUR ---
PATIENT SHOWERED. SHE REPORTED FINDING A LUMP IN HER ARM PIT WHILE SHOWERING. THIS NURSE LOOKED AT AND FELT THE AREA. THERE IS A SMALL BB SIZE LUMP IN THE LEFT AXILLARY AREA. IT SEEMS IF IT COULD BE A HAIR FOLLICLE/PIMLPLE UNDER THE SKIN. WE APPLIED A WARM COMPRESS TO SEE IF THE BUMP WOULD COME TO THE SURFACE. IT DIDN'T CHANGE. I ASKED THE PATIENT TO HAVE TO PROVIDER ASSESS IN THE MORNING. PATIENTS MOM HAS HISTORY OF BREAST CANCER WITH DOUBLE MASTECTOMY AROUND AGE OF 40. PATIENT IS 46. LAST MAMOGRAM ONE YEAR AGO. PATIENT STATES THAT SHE HAD A LUMP INSIDE OF THE BREAST AT ONE TIME, THAT WAS TREATED WITH ABX AND IT EFFECTIVELY RESOLVED.
--- NOTE | 2022-01-13 15:16 | NUR ---
JUSTIN FROM [facility] CALLED REGARDING THIS PATIENTS DISCHARGE BECAUSE TOMORROW IS THE END OF HER [address] FREEMAN. SHE WOULD LIKE US TO SCHEDULE AN APPT. WITH HER TOMORROW BEFORE THE PATIENT DISCHARGES FOR A FOLLOW UP APPT. [phone].
--- NOTE | 2022-01-13 16:50 | NUR ---
PATIENT WAS SEEN BY DR. JONES THIS SHIFT. HE ADJUSTED MEDICATION AND DECIDED TO HAVE HER STAY TONIGHT TO EVALUATE. SHE WAS HAVING SOME SI THIS AM, BUT NOT FOR HARMING SELF, BUT FOR DESIRING SOMEONE ELSE TO HARM HER. DR. BEAR ADJUSTED LONG ACTING INSULIN, WITH THE CHANGE COMING IN THE AFTERNOON. THE DOSE WAS ADJUSTED FROM 25 TO 35 UNITS SO AN ADDITIONAL 10 UNITS WERE GIVEN THIS AFTERNOON (PER DR. BEAR) AFTER THE ORDER CAME OUT. [facility] CALLED TODAY WANTIN TO ASSURE THAT A FOLLOW UP APPT WILL BE SCHEDULED WITH THE [facility] BEFORE DISCHARGE. SOCIAL WORKERS HERE IN THE AFTERNOON SPEAKING WITH THE PATIENT AND DEVISING A PLAN OF SAFETY.
[2022-01-14 05:48] LABS: Hematocrit 29.1 % (33.0-51.0); Hemoglobin 9.4 g/dL (11.5-16.0)
--- NOTE | 2022-01-14 06:20 | NUR ---
SUMMARY: PATIENT DID WELL OVER NIGHT. PATIENT REPORTED SHE HAS ONLY SLEPT FOR 8 HOURS CONSISTENTLY OVER THE LAST FEW DAYS. MEDS CHANGED THIS EVENING TO A SCHEDULED ATARAX BEFORE BED. MEDS GIVEN. PATIENT CONVERSING WITH NURSE ABOUT CONVERSATIONS WITH HER DAUGHTER AND MOTHER. PATIENT RECONGNISES THAT HER MOTHER DOES NOT HELP HER FEEL BETTER WHEN SHE SPEAKS WITH HER. PATIENT EXPRESSED THAT SHE WOULD AVOID THOSE CONVERSATIONS WHILE SHE IS WORKING ON HER OWN MENTAL HEALTH. NO ACTIVE SI THOUGHTS. BP SOFT THIS AM MAP WAS STABLE AT 65. CRITICAL CREATININE 10.1 THIS AM GIVEN TO DR. GONZALEZ WHO WAS ON UNIT.
[2022-01-14 06:21] LABS: Magnesium, Blood 2.6 mg/dL (1.6-2.4)
[2022-01-14 06:24] LABS: Albumin, Blood 3.6 g/dL (3.4-5.0); Anion Gap 12 mmol/L (6-16); Blood Urea Nitrogen 82 mg/dL (8-24); Bun/Creatinine Ratio 8.1 (12.0-20.0); CO2, Blood 27 mmol/L (21-32); Calcium, Blood 8.2 mg/dL (8.5-10.1); Chloride, Blood 97 mmol/L (98-108); Glomerular Filtration Rate 4 (60-); Glucose, Blood 115 mg/dL (70-99); Phosphorus, Blood 7.2 mg/dL (2.5-4.9); Potassium, Blood 4.3 mmol/L (3.5-5.5); Sodium, Blood 136 mmol/L (136-145)
--- NOTE | 2022-01-14 09:02 | NUR ---
Called [facility] to schedule the patient with a follow-up appt with WES Rodgers. They are going to try to get her in within the next couple of days and will call this child welfare social worker or the patient with an appt time. Notified patient and suggested if she does not hear from them by tomorrow morning to call the office again.
--- NOTE | 2022-01-14 09:10 | NUR ---
Recieved message to call [employer] to see if the patient can be seen sooner as her appt is on 01/[address] Pineda and 02/04. Savannah is has agreed to see her tomorrow at 2:00. Notified patient.
--- NOTE | 2022-01-14 11:58 | NUR ---
PATIENT REPORTED QUALITY SLEEP LAST NIGHT, AND WOKE WITH NO ANXIETY, WHICH IS DIFFERENT THAN USUAL. SHE WAS HAPPY ABOUT THE MEDICATION CHANGES MADE YESTERDAY THAT MAY HAVE CONTRIBUTE TO THIS. SHE IS AT DIALYSIS AT THIS TIME.
--- NOTE | 2022-01-14 14:15 | NUR ---
PATIENT NOT ABLE TO MAKE HER APPT WITH [facility] TOMORROW DUE TO DIALYSIS. CALLED WITH PATIENT PRESENT AND SCHEDULED FOR THURSDAY AT 14:00. SHE ALSO CALLED HER PCP OFFICE TO SCHEDULE BUT THEY ARE STILL WORKING ON THIS AND WILL CALL HER WITH AN APPT.
[2022-01-14] MEDS ORDERED: SERT100 PO (15:34)
[2022-01-14] MEDS ORDERED: FLUDROCORTISON0.1 M1 PO (15:36)
[2022-01-14] MEDS ORDERED: HYDHCL25 PO (15:38)
[2022-01-14] MEDS ORDERED: TRAZ100 PO (15:39)
--- NOTE | 2022-01-14 17:43 | NUR ---
DISCHARGE 1730 PATIENT WAS DISCHARGED TO HOME THIS EVENING. POWERGLIDE WAS DISCONTNUED. PATIENT IS AWARE OF THE FOLLOW UP APPT ON THURSDAY AT [facility]. SHE DENIES ANY THOUGHTS OF HURING OR KILLING SELF AT THIS TIME. PATIENTS NEW MEDICATIONS WERE FAXED TO [facility]. DISCHARGE PAPERWORK WAS REVIEWD INCLUDING RECOMMENDED FOLLOW UPS, MEDICATIONS LIST, AND PATIENT EDUCATION. PATIENT WAS WHEELED OUT TO HER OWN CAR IN THE PARKING LOT. SHE DROVE HERSELF HOME.
== END 2022-01-14 17:36 | disposition home or self-care (01) ==
LOC: ER 14:59 → EOR 15:00 → PCU 15:00 → MEDS 01-09 16:27
PROVIDERS: Internal Medicine; Internal Medicine Nephrology; Student in an Organized Health Care Education/Training Program; ADMIT Emergency Medicine
DX: I95.1 Orthostatic hypotension (principal); E11.65 Type 2 diabetes mellitus with hyperglycemia; F33.9 Major depressive disorder, recurrent, unspecified; F12.11 Cannabis abuse, in remission; F15.11 Other stimulant abuse, in remission; E11.22 Type 2 diabetes mellitus with diabetic chronic kidney disease; I12.0 Hypertensive chronic kidney disease with stage 5 chronic kidney disease or end stage renal disease; N18.6 End stage renal disease; E03.9 Hypothyroidism, unspecified; F41.9 Anxiety disorder, unspecified; N25.81 Secondary hyperparathyroidism of renal origin; E87.70 Fluid overload, unspecified; E87.1 Hypo-osmolality and hyponatremia; E87.5 Hyperkalemia; D64.9 Anemia, unspecified; E86.9 Volume depletion, unspecified; E83.39 Other disorders of phosphorus metabolism; G47.30 Sleep apnea, unspecified; E78.00 Pure hypercholesterolemia, unspecified; E66.9 Obesity, unspecified; Z20.822 Contact with and (suspected) exposure to COVID-19; Z99.2 Dependence on renal dialysis; Z87.891 Personal history of nicotine dependence; Z79.4 Long term (current) use of insulin; Z88.1 Allergy status to other antibiotic agents; Z88.8 Allergy status to other drugs, medicaments and biological substances; Z96.41 Presence of insulin pump (external) (internal); Z79.82 Long term (current) use of aspirin; Z95.5 Presence of coronary angioplasty implant and graft; Z68.41 Body mass index [BMI] 40.0-44.9, adult
CPT/HCPCS: 0241U; 36415; 80048; 80053; 80069; 82728; 82947; 83540; 83550; 83735; 84703; 85014; 85018; 85025; 94660; 94762; 96361; 96365; 96366; 96372; A9270; G0257; G0378; G0480; J0881; J1644; J1815; J7030; J7040; P9047

== ENCOUNTER 2022-02-24 18:17 | Emergency (ER) | payer MEDICARE, OTHER ==
[~2022-02-24] VITALS: Ht 152.4 cm; Wt 97.5 kg
[~2022-02-24 18:17] MED LIST changes: +Aspir 8181 MG PO; +Calcium Carbon500 MG PO; +FLUDROCORTISON0.1 M1 PO; +HYDHCL25 PO; +Nexium40 MG PO; +OMEP20ER PO; +TRAZ100 PO
[2022-02-24] MEDS ORDERED: CLON.5 PO (18:41)
[2022-02-24] MEDS ORDERED: Buspirone HCl15 MG PO (18:41)
== END 2022-02-24 19:47 | disposition home or self-care (01) ==
LOC: ER 18:17
DX: M54.9 Dorsalgia, unspecified (principal); M25.512 Pain in left shoulder; E11.22 Type 2 diabetes mellitus with diabetic chronic kidney disease; N18.6 End stage renal disease; Z99.2 Dependence on renal dialysis; Z95.5 Presence of coronary angioplasty implant and graft; Z88.1 Allergy status to other antibiotic agents; Z88.8 Allergy status to other drugs, medicaments and biological substances; Z79.899 Other long term (current) drug therapy; Z79.82 Long term (current) use of aspirin; Z87.891 Personal history of nicotine dependence
CPT/HCPCS: 71046

== ENCOUNTER 2022-04-07 12:32 | Emergency (ER) | payer MEDICARE, OTHER ==
[~2022-04-07] VITALS: Ht 152.4 cm; Wt 95.2 kg
[~2022-04-07 12:32] MED LIST changes: +Buspirone HCl15 MG PO
[2022-04-07 13:40] LABS: BASOPHILS ABSOLUTE AUTO 0.03 K/mm3 (0.00-0.23); BASOPHILS PERCENT AUTO 0 % (0-2); EOSINOPHILS ABSOLUTE AUTO 0.24 K/mm3 (0.00-0.68); EOSINOPHILS PERCENT AUTO 3 % (0-6); Hemoglobin 9.7 g/dL (11.5-16.0); IMMATURE GRAN ABSOLUTE AUTO 0.13 K/mm3 (0.00-0.10); IMMATURE GRAN PERCENT AUTO 1 % (0-1); LYMPHOCYTES ABSOLUTE AUTO 1.62 K/mm3 (0.84-5.20); LYMPHOCYTES PERCENT AUTO 17 % (21-46); MONOCYTES ABSOLUTE AUTO 0.36 K/mm3 (0.16-1.47); MONOCYTES PERCENT AUTO 4 % (4-13); Mean Corpuscular HGB 29.9 pg (26.0-34.0); Mean Corpuscular HGB Conc 31.3 g/dL (31.5-36.5); Mean Corpuscular Volume 96 fL (80-100); Mean Platelet Volume 8.9 fL (9.1-12.4); NEUTROPHILS ABSOLUTE AUTO 7.07 K/mm3 (1.96-9.15); NEUTROPHILS PERCENT AUTO 75 % (41-73); Platelet Count 383 K/mm3 (150-400); RDW Coefficient Variation 15.7 % (11.7-14.2); RDW Standard Deviation 54.8 fL (35.1-46.3); Red Blood Cell Count 3.24 M/mm3 (3.80-5.20); White Blood Cell Count 9.45 K/mm3 (4.00-11.30)
[2022-04-07 14:12] LABS: Albumin, Blood 3.3 g/dL (3.4-5.0); Albumin/Globulin Ratio 0.8 (0.8-1.8); Bilirubin, Total 0.4 mg/dL (0.1-1.0); Bun/Creatinine Ratio 6.9 (12.0-20.0); Calcium, Blood 8.1 mg/dL (8.5-10.1); Creatinine, Blood 13.1 mg/dL (0.40-1.00); Globulin, Blood 4.3 g/dL (2.2-4.0); Potassium, Blood 5.4 mmol/L (3.5-5.5); Total Protein, Blood 7.6 g/dL (6.4-8.2)
[2022-04-07 17:10] LABS: Influenza A, PCR NEGATIVE (NEGATIVE); Influenza B, PCR NEGATIVE (NEGATIVE); Resp Syncytial Virus, PCR NEGATIVE (NEGATIVE); SARS-Cov-2 (COVID-19) PCR, MMC NEGATIVE (NEGATIVE)
[2022-04-07] MEDS ORDERED: ONDA4ODT MM (17:59)
[2022-04-07] MEDS ORDERED: ALBU90OI INH (17:59)
== END 2022-04-07 18:34 | disposition home or self-care (01) ==
LOC: ER 12:32
PROVIDERS: Physician Assistant
DX: B34.9 Viral infection, unspecified (principal); E03.9 Hypothyroidism, unspecified; E78.5 Hyperlipidemia, unspecified; I50.9 Heart failure, unspecified; E11.9 Type 2 diabetes mellitus without complications; Z79.82 Long term (current) use of aspirin; Z79.899 Other long term (current) drug therapy; Z79.890 Hormone replacement therapy; Z88.1 Allergy status to other antibiotic agents; Z88.8 Allergy status to other drugs, medicaments and biological substances; Z87.891 Personal history of nicotine dependence; Z99.2 Dependence on renal dialysis; Z20.822 Contact with and (suspected) exposure to COVID-19
CPT/HCPCS: 0241U; 71046; 80053; 85025

== ENCOUNTER 2022-04-12 22:19 | Emergency (ER) | payer MEDICARE, OTHER ==
[~2022-04-12] VITALS: Ht 152.4 cm; Wt 95.2 kg
[~2022-04-12 22:19] MED LIST changes: +ALBU90OI INH
[2022-04-13 01:07] LABS: Influenza A, PCR NEGATIVE (NEGATIVE); Influenza B, PCR NEGATIVE (NEGATIVE); Resp Syncytial Virus, PCR NEGATIVE (NEGATIVE); SARS-Cov-2 (COVID-19) PCR, MMC NEGATIVE (NEGATIVE)
[2022-04-13 02:00] LABS: BASOPHILS ABSOLUTE AUTO 0.05 K/mm3 (0.00-0.23); BASOPHILS PERCENT AUTO 1 % (0-2); EOSINOPHILS ABSOLUTE AUTO 0.29 K/mm3 (0.00-0.68); EOSINOPHILS PERCENT AUTO 3 % (0-6); Hematocrit 31.3 % (33.0-51.0); Hemoglobin 9.8 g/dL (11.5-16.0); IMMATURE GRAN ABSOLUTE AUTO 0.07 K/mm3 (0.00-0.10); IMMATURE GRAN PERCENT AUTO 1 % (0-1); LYMPHOCYTES ABSOLUTE AUTO 2.45 K/mm3 (0.84-5.20); LYMPHOCYTES PERCENT AUTO 23 % (21-46); MONOCYTES ABSOLUTE AUTO 0.58 K/mm3 (0.16-1.47); MONOCYTES PERCENT AUTO 5 % (4-13); Mean Corpuscular HGB 29.9 pg (26.0-34.0); Mean Corpuscular HGB Conc 31.3 g/dL (31.5-36.5); Mean Corpuscular Volume 95 fL (80-100); Mean Platelet Volume 8.9 fL (9.1-12.4); NEUTROPHILS ABSOLUTE AUTO 7.26 K/mm3 (1.96-9.15); NEUTROPHILS PERCENT AUTO 68 % (41-73); Platelet Count 384 K/mm3 (150-400); RDW Coefficient Variation 15.3 % (11.7-14.2); RDW Standard Deviation 53.9 fL (35.1-46.3); Red Blood Cell Count 3.28 M/mm3 (3.80-5.20)
[2022-04-13 02:31] LABS: Bun/Creatinine Ratio 4.7 (12.0-20.0); Calcium, Blood 8.4 mg/dL (8.5-10.1); Creatinine, Blood 8.03 mg/dL (0.40-1.00); Potassium, Blood 3.5 mmol/L (3.5-5.5)
[2022-04-13] MEDS ORDERED: ALBU90OI INH (02:45)
== END 2022-04-13 03:02 | disposition home or self-care (01) ==
LOC: ER 22:19
PROVIDERS: Student in an Organized Health Care Education/Training Program
DX: R06.2 Wheezing (principal); R06.02 Shortness of breath; N18.6 End stage renal disease; Z99.2 Dependence on renal dialysis; D64.9 Anemia, unspecified; R53.83 Other fatigue; R10.9 Unspecified abdominal pain; R53.1 Weakness; E11.22 Type 2 diabetes mellitus with diabetic chronic kidney disease; I50.9 Heart failure, unspecified; E03.9 Hypothyroidism, unspecified; E78.5 Hyperlipidemia, unspecified; Z20.822 Contact with and (suspected) exposure to COVID-19; Z88.1 Allergy status to other antibiotic agents; Z88.8 Allergy status to other drugs, medicaments and biological substances; Z79.899 Other long term (current) drug therapy; Z79.82 Long term (current) use of aspirin; Z87.891 Personal history of nicotine dependence
CPT/HCPCS: 0241U; 36415; 71045; 80048; 85025

== ENCOUNTER 2022-04-15 22:04 | Observation (INO) | payer MEDICARE, OTHER ==
[~2022-04-15] VITALS: Ht 152.4 cm; Wt 98.5 kg
[2022-04-16 02:14] LABS: BASOPHILS ABSOLUTE AUTO 0.03 K/mm3 (0.00-0.23); BASOPHILS PERCENT AUTO 0 % (0-2); EOSINOPHILS ABSOLUTE AUTO 0.23 K/mm3 (0.00-0.68); EOSINOPHILS PERCENT AUTO 3 % (0-6); IMMATURE GRAN ABSOLUTE AUTO 0.09 K/mm3 (0.00-0.10); IMMATURE GRAN PERCENT AUTO 1 % (0-1); LYMPHOCYTES ABSOLUTE AUTO 2.28 K/mm3 (0.84-5.20); LYMPHOCYTES PERCENT AUTO 27 % (21-46); MONOCYTES PERCENT AUTO 7 % (4-13); Mean Corpuscular Volume 97 fL (80-100); Mean Platelet Volume 9.6 fL (9.1-12.4); NEUTROPHILS ABSOLUTE AUTO 5.31 K/mm3 (1.96-9.15); NEUTROPHILS PERCENT AUTO 62 % (41-73); Platelet Count 323 K/mm3 (150-400); RDW Coefficient Variation 15.9 % (11.7-14.2); RDW Standard Deviation 56.4 fL (35.1-46.3); White Blood Cell Count 8.54 K/mm3 (4.00-11.30)
[2022-04-16] MEDS ORDERED: MERIBIN5 MG PO (02:33)
[2022-04-16 02:51] LABS: Albumin, Blood 3.4 g/dL (3.4-5.0); Albumin/Globulin Ratio 0.8 (0.8-1.8); Bilirubin, Total 0.3 mg/dL (0.1-1.0); Bun/Creatinine Ratio 6.3 (12.0-20.0); Creatinine, Blood 8.69 mg/dL (0.40-1.00); Potassium, Blood 3.9 mmol/L (3.5-5.5); Total Protein, Blood 7.4 g/dL (6.4-8.2)
--- NOTE | 2022-04-16 13:17 | NUR ---
PATIENT CAME FROM ER-TO DIALYSIS-TO ROOM 209 AT 1310. PATIENT IS A&OX4. SOFT SBP BUT OTHERWISE VS ARE WNL. SHE IS ON RA WITH >90% OXYGEN SATS AND DENIES SOB OR CHEST PAIN AT THIS TIME. SHE IS NPO STILL UNTIL AFTER HER STRESS TEST APPOINTMENT AT 1500. SHE WAS ABLE TO STAND FROM WHEELCHAIR AND WALK TO THE BED A SBA. SHE IS CURRENTLY LAYING IN BED. CALL LIGHT WITHIN REACH.
[2022-04-16 13:47] LABS: Creatine Kinase MB 1.9 ng/mL (0.0-3.6); Creatine Kinase MB Index 0.9 (0.0-4.0)
--- NOTE | 2022-04-16 18:34 | NUR ---
SHIFT SUMMARY: NO SIGNIFICANT CHANGES SINCE COMING FROM DIALYSIS EARLIER TODAY. PATIENT IS A&OX4. VS ARE WNL AND IS ON RA. PATIENT DENIES CHEST PAIN OR ANY PAIN. SHE IS INDEP. IN THE ROOM. SHE IS VOIDING AND TOLERATING PO INTAKE. PATIENT HAD AN ECHO AND THE FIRST PART OF THE STRESS TEST DONE. THE SECOND TEST WILL BE TOMORROW SOMETIME. CALLS APPROPRIATELY. CALL LIGHT WITHIN REACH.
--- NOTE | 2022-04-16 21:19 | NUR ---
BLOOD SUGAR DR OTOOLE CONTACTED FOR SS COVERAGE FOR THIS PT AT THE BEGINNING OF SHIFT. PT LATER STATED THAT SHE HAS AN INSULIN PUMP AND GETS 1.5U/HR. BLOOD GLUCOSE NOTED TO BE 223 AT 1711 AND 190 AT 2030. NO COVERAGE PER SLIDING SCALE. UPDATED DR OTOOLE ABOUT THESE FINDINGS AND HE STATED THAT IT WAS OKAY TO D/C INSULIN COVERAGE AND CONTINUE ACHS CHECKS.
[2022-04-16 21:27] LABS: CPK Creatine Kinase 201 U/L (26-193)
[2022-04-16 22:15] LABS: Creatine Kinase MB <1.0 ng/mL (0.0-3.6); Creatine Kinase MB Index Unable to Calculate (0.0-4.0)
[2022-04-17 04:35] LABS: BASOPHILS ABSOLUTE AUTO 0.03 K/mm3 (0.00-0.23); BASOPHILS PERCENT AUTO 1 % (0-2); EOSINOPHILS ABSOLUTE AUTO 0.21 K/mm3 (0.00-0.68); EOSINOPHILS PERCENT AUTO 3 % (0-6); Hematocrit 26.5 % (33.0-51.0); Hemoglobin 8.3 g/dL (11.5-16.0); IMMATURE GRAN ABSOLUTE AUTO 0.03 K/mm3 (0.00-0.10); IMMATURE GRAN PERCENT AUTO 1 % (0-1); LYMPHOCYTES ABSOLUTE AUTO 1.68 K/mm3 (0.84-5.20); LYMPHOCYTES PERCENT AUTO 26 % (21-46); MONOCYTES ABSOLUTE AUTO 0.56 K/mm3 (0.16-1.47); MONOCYTES PERCENT AUTO 9 % (4-13); Mean Corpuscular HGB Conc 31.3 g/dL (31.5-36.5); Mean Corpuscular Volume 96 fL (80-100); Mean Platelet Volume 9.3 fL (9.1-12.4); NEUTROPHILS ABSOLUTE AUTO 3.87 K/mm3 (1.96-9.15); NEUTROPHILS PERCENT AUTO 61 % (41-73); Platelet Count 317 K/mm3 (150-400); RDW Coefficient Variation 15.6 % (11.7-14.2); RDW Standard Deviation 54.9 fL (35.1-46.3); Red Blood Cell Count 2.77 M/mm3 (3.80-5.20); White Blood Cell Count 6.38 K/mm3 (4.00-11.30)
--- NOTE | 2022-04-17 04:46 | NUR ---
CBG WHEN LAB AWOKE PT THIS AM, SHE NOTICED HER INSULIN PUMP HAD COME OFF DURING THE NIGHT AND HER BLOODSUGAR WAS 310. THE PATIENT BOLUSED HERSELF AND HAS A PLAN TO MANAGE THIS. PLAN TO FOLLOW UP ON THIS.
--- NOTE | 2022-04-17 05:00 | NUR ---
VSS. PT SLEPT WELL T/O THE NIGHT. TELE IN PLACE, SR 87. PT DENIES CP OR SOB T/O THE NIGHT. PT HAS BEEN NPO SINCE 429 FOR STRESS TEST TODAY. BLADDER SCAN SHOWED NO URINE. PT REMAINED INDEPDENT T/O THE NIGHT, PASSING STOOL AND FLATTUS W/ DIFFICULTY. PLAN FOR 2ND PART OF STRESS TEST TODAY. THE PATIENT IS CURRENTLY SLEEPING, IN NO DISTRESS, CALL LIGHT IN REACH.
[2022-04-17 05:05] LABS: Albumin/Globulin Ratio 0.8 (0.8-1.8); Bilirubin, Total 0.4 mg/dL (0.1-1.0); Bun/Creatinine Ratio 7.7 (12.0-20.0); Calcium, Blood 7.9 mg/dL (8.5-10.1); Creatinine, Blood 7.51 mg/dL (0.40-1.00); Globulin, Blood 3.7 g/dL (2.2-4.0); Magnesium, Blood 2.2 mg/dL (1.6-2.4); Phosphorus, Blood 7.4 mg/dL (2.5-4.9); Potassium, Blood 4.8 mmol/L (3.5-5.5); Total Protein, Blood 6.7 g/dL (6.4-8.2)
--- NOTE | 2022-04-17 05:52 | NUR ---
CBG PTS BLOOD SUGAR IS TRENDING DOWN, AT 362 AT THIS TIME.
--- NOTE | 2022-04-17 09:03 | NUR ---
0800 PT HAS GLUCOSE SELF MONITORING SITE ON RIGHT MID ABD AND HAS INSULIN PUMP TO ABD. PT DECLINE INSULI ADMIINISTRATION AND STATES SHE WILL DOSE HER OWN INSULIN. PER PATIENT SHE HAS NOT ADMINISTERED ANY RECENTLY IS NPO FOR NUCLEAR MED TEST BUT IS MONITORING HER BLOOD SUGAR LEVELS
--- NOTE | 2022-04-17 10:35 | NUR ---
0810 PER PATIENT HER BASAL INSULIN RATE VIA PUMP IS 1.17 UNITS/HR. PTS CURRENT SELF GLUCOMETER MONITOR CHECK IS 247. PT NPO FOR NUCLEAR MED STUDY
--- NOTE | 2022-04-17 10:37 | NUR ---
0956 BLOOD GLUCOSE PER PATIENT SELF MONITOR IS 147. PT IS SELF ADMINISTERING 3 UNITS INSULIN
--- NOTE | 2022-04-17 10:37 | NUR ---
9193 NUCLEAR MED BEDSIDE STUDY COMPLETE, PT EATING BREAKFAST. SELF MONITOR BLOOD GLUCOSE 152
--- NOTE | 2022-04-17 18:13 | NUR ---
HAS DENIED PAIN OR SOB THROUGHOUT SHIFT, PT REPORTS JUST FEELS TIRED AND WANTS TO SLEEP. PT UP INDEPENDENTLY IN ROOM TO BATHROOM. MONITOR SR. PT AWARE OF ANGIOGRAM SCHEDULED FOR AM
--- NOTE | 2022-04-17 18:22 | NUR ---
PT DECLINES BLADDER SCAN, STATES SHE HASNT URINATED FOR 6 YEARS
--- NOTE | 2022-04-18 04:35 | NUR ---
VSS, CHRONIC HYPOTENSION NOTED. MD'S AWARE, PT ASYMPTOMATIC. PT SLEPT WELL T/O THE NIGHT, REPORTED FEELING DEPRESSED AND WORN OUT D/T THE NEWS FROM HER STRESS TEST. PT REFUSED BLADDER SCAN SHE HAS BEEN ANURIC FOR OVER 5 YEARS. TELE READS SR 69, NO ACUTE EVENTS NOTED. PLAN FOR PT TO HAVE ANGIOGRAM THIS AM AT 0900, HAS BEEN NPO SINCE 0000. THE PATIENT IS CURRENTLY RESTING, IN NO DISTRESS, CALL LIGHT IN REACH.
[2022-04-18 05:39] LABS: Hematocrit 28.2 % (33.0-51.0); Hemoglobin 9.2 g/dL (11.5-16.0)
[2022-04-18 06:18] LABS: Magnesium, Blood 2.6 mg/dL (1.6-2.4)
[2022-04-18 06:27] LABS: Albumin, Blood 3.2 g/dL (3.4-5.0); Anion Gap 13 mmol/L (6-16); Blood Urea Nitrogen 78 mg/dL (8-24); Bun/Creatinine Ratio 7.7 (12.0-20.0); CO2, Blood 30 mmol/L (21-32); Chloride, Blood 94 mmol/L (98-108); Glomerular Filtration Rate 4 (60-); Glucose, Blood 100 mg/dL (70-99); Phosphorus, Blood 7.7 mg/dL (2.5-4.9); Potassium, Blood 4.4 mmol/L (3.5-5.5); Sodium, Blood 137 mmol/L (136-145)
--- NOTE | 2022-04-18 07:00 | NUR ---
TO HEART CENTER VIA WHEELCHAIR
[2022-04-18] MEDS ORDERED: Isosorbide Mono30 MG PO (16:11)
== END 2022-04-18 17:41 | disposition home or self-care (01) ==
LOC: ER 22:04 → ERHOLD 22:05 → ER 22:07 → ERHOLD 22:07 → SURS 22:07 → ER 04-16 04:52 → ERHOLD 04-16 04:52 → ER 04-16 05:47 → ERHOLD 04-16 05:47 → SURS 04-16 13:02 → PCU 04-18 07:33 → SURS 04-18 07:33 → PCU 04-18 07:33
PROVIDERS: Internal Medicine Nephrology; Student in an Organized Health Care Education/Training Program; ADMIT Internal Medicine
DX: R07.9 Chest pain, unspecified (principal); F41.9 Anxiety disorder, unspecified; N18.6 End stage renal disease; E03.9 Hypothyroidism, unspecified; E11.22 Type 2 diabetes mellitus with diabetic chronic kidney disease; D63.1 Anemia in chronic kidney disease; E83.51 Hypocalcemia; Z87.891 Personal history of nicotine dependence; E78.5 Hyperlipidemia, unspecified; E66.01 Morbid (severe) obesity due to excess calories; Z99.2 Dependence on renal dialysis; E83.41 Hypermagnesemia
CPT/HCPCS: 36415; 71046; 76937; 78452; 80053; 80069; 82550; 82553; 82947; 83735; 83880; 84100; 84484; 85014; 85018; 85025; 93005; 93010; 93017; 93308; 93321; 93454; 94640; 94660; 94664; 94760; 96372; 96374; 99152; 99153; 99285-25; A9270; A9500; C1769; C1894; G0257; G0378; J0706; J0881; J1644; J1815; J2250; J2405; J2785; J3010; J7030; J7050; P9047; Q9967

== ENCOUNTER 2022-06-03 15:55 | Emergency (ER) | payer MEDICARE, OTHER ==
[~2022-06-03] VITALS: Ht 152.4 cm; Wt 95.2 kg
[~2022-06-03 15:55] MED LIST changes: +Isosorbide Mono30 MG PO; +MERIBIN5 MG PO
[2022-06-03 18:23] LABS: BASOPHILS ABSOLUTE AUTO 0.04 K/mm3 (0.00-0.23); BASOPHILS PERCENT AUTO 0 % (0-2); EOSINOPHILS ABSOLUTE AUTO 0.17 K/mm3 (0.00-0.68); EOSINOPHILS PERCENT AUTO 2 % (0-6); Hematocrit 28.1 % (33.0-51.0); Hemoglobin 9.2 g/dL (11.5-16.0); IMMATURE GRAN ABSOLUTE AUTO 0.05 K/mm3 (0.00-0.10); IMMATURE GRAN PERCENT AUTO 1 % (0-1); LYMPHOCYTES PERCENT AUTO 23 % (21-46); MONOCYTES ABSOLUTE AUTO 0.79 K/mm3 (0.16-1.47); MONOCYTES PERCENT AUTO 8 % (4-13); Mean Corpuscular HGB 30.5 pg (26.0-34.0); Mean Corpuscular HGB Conc 32.7 g/dL (31.5-36.5); Mean Corpuscular Volume 93 fL (80-100); Mean Platelet Volume 8.8 fL (9.1-12.4); NEUTROPHILS ABSOLUTE AUTO 7.15 K/mm3 (1.96-9.15); NEUTROPHILS PERCENT AUTO 67 % (41-73); Platelet Count 418 K/mm3 (150-400); RDW Coefficient Variation 17.2 % (11.7-14.2); RDW Standard Deviation 57.3 fL (35.1-46.3); Red Blood Cell Count 3.02 M/mm3 (3.80-5.20)
[2022-06-03 18:46] LABS: Calcium, Blood 8.2 mg/dL (8.5-10.1); Creatinine, Blood 11.6 mg/dL (0.40-1.00); Potassium, Blood 4.9 mmol/L (3.5-5.5)
== END 2022-06-03 20:25 | disposition home or self-care (01) ==
LOC: ER 15:55
PROVIDERS: Student in an Organized Health Care Education/Training Program
DX: T82.838A Hemorrhage due to vascular prosthetic devices, implants and grafts, initial encounter (principal); E11.22 Type 2 diabetes mellitus with diabetic chronic kidney disease; I50.9 Heart failure, unspecified; N18.9 Chronic kidney disease, unspecified; Z88.1 Allergy status to other antibiotic agents; Z88.8 Allergy status to other drugs, medicaments and biological substances; Z79.82 Long term (current) use of aspirin; Z79.899 Other long term (current) drug therapy; Z79.890 Hormone replacement therapy; Z95.5 Presence of coronary angioplasty implant and graft
CPT/HCPCS: 36415; 80048; 85025; 93990; 99284-25

== ENCOUNTER 2022-06-04 13:42 | Emergency (ER) | payer MEDICARE, OTHER ==
[~2022-06-04] VITALS: Ht 152.4 cm; Wt 96.6 kg
[2022-06-04 14:43] LABS: BASOPHILS ABSOLUTE AUTO 0.04 K/mm3 (0.00-0.23); BASOPHILS PERCENT AUTO 0 % (0-2); EOSINOPHILS PERCENT AUTO 2 % (0-6); Hematocrit 29.2 % (33.0-51.0); Hemoglobin 9.1 g/dL (11.5-16.0); IMMATURE GRAN ABSOLUTE AUTO 0.06 K/mm3 (0.00-0.10); IMMATURE GRAN PERCENT AUTO 1 % (0-1); LYMPHOCYTES ABSOLUTE AUTO 1.41 K/mm3 (0.84-5.20); LYMPHOCYTES PERCENT AUTO 13 % (21-46); MONOCYTES ABSOLUTE AUTO 0.59 K/mm3 (0.16-1.47); MONOCYTES PERCENT AUTO 5 % (4-13); Mean Corpuscular HGB Conc 31.2 g/dL (31.5-36.5); Mean Corpuscular Volume 96 fL (80-100); Mean Platelet Volume 8.6 fL (9.1-12.4); NEUTROPHILS ABSOLUTE AUTO 8.57 K/mm3 (1.96-9.15); NEUTROPHILS PERCENT AUTO 79 % (41-73); Platelet Count 386 K/mm3 (150-400); RDW Coefficient Variation 17.2 % (11.7-14.2); RDW Standard Deviation 60.1 fL (35.1-46.3); Red Blood Cell Count 3.03 M/mm3 (3.80-5.20); White Blood Cell Count 10.87 K/mm3 (4.00-11.30)
[2022-06-04 14:59] LABS: International Normalized Ratio 1.03; Prothrombin Time Results 10.8 Sec (9.7-11.5)
[2022-06-04 15:39] LABS: Albumin, Blood 3.4 g/dL (3.4-5.0); Albumin/Globulin Ratio 0.9 (0.8-1.8); Bilirubin, Total 0.6 mg/dL (0.1-1.0); Bun/Creatinine Ratio 8.4 (12.0-20.0); Calcium, Blood 8.1 mg/dL (8.5-10.1); Creatinine, Blood 12.7 mg/dL (0.40-1.00); Globulin, Blood 3.9 g/dL (2.2-4.0); Potassium, Blood 5.4 mmol/L (3.5-5.5); Total Protein, Blood 7.3 g/dL (6.4-8.2)
== END 2022-06-04 16:46 | disposition home or self-care (01) ==
LOC: ER 13:42
PROVIDERS: Physician Assistant
DX: E11.22 Type 2 diabetes mellitus with diabetic chronic kidney disease (principal); N18.6 End stage renal disease; I50.9 Heart failure, unspecified; E03.9 Hypothyroidism, unspecified; Z79.899 Other long term (current) drug therapy; Z79.82 Long term (current) use of aspirin; Z88.1 Allergy status to other antibiotic agents; Z95.5 Presence of coronary angioplasty implant and graft; Z87.891 Personal history of nicotine dependence; Z99.2 Dependence on renal dialysis
CPT/HCPCS: 80053; 85025; 85610; 99283

== ENCOUNTER 2022-08-07 23:03 | Inpatient (IN) | payer MEDICARE, OTHER ==
[~2022-08-07] VITALS: Ht 152.4 cm; Wt 99.1 kg
[2022-08-08] VITALS (17 sets, daily range): BP systolic 67–125; BP diastolic 32–112
[2022-08-08 03:25] LABS: Calcium, Ionized (POC) 0.85 mmol/L (1.10-1.46); Chloride (POC) 92 mmol/L (98-108); Creatinine (POC) 9.2 mg/dL (0.6-1.0); Glucose (ISTAT POC) 687 mg/dL (70-99); Hemoglobin (POC) 11.6 g/dL (12.0-16.0); Potassium (POC) 6.4 mmol/L (3.5-5.5); Sodium (POC) 126 mmol/L (135-148); Total CO2 (POC) 24 mmol/L (21-32)
[2022-08-08 03:40] LABS: BASOPHILS ABSOLUTE AUTO 0.03 K/mm3 (0.00-0.23); BASOPHILS PERCENT AUTO 0 % (0-2); EOSINOPHILS ABSOLUTE AUTO 0.16 K/mm3 (0.00-0.68); EOSINOPHILS PERCENT AUTO 2 % (0-6); Hemoglobin 9.9 g/dL (11.5-16.0); IMMATURE GRAN ABSOLUTE AUTO 0.03 K/mm3 (0.00-0.10); IMMATURE GRAN PERCENT AUTO 0 % (0-1); LYMPHOCYTES ABSOLUTE AUTO 2.01 K/mm3 (0.84-5.20); LYMPHOCYTES PERCENT AUTO 23 % (21-46); MONOCYTES ABSOLUTE AUTO 0.58 K/mm3 (0.16-1.47); MONOCYTES PERCENT AUTO 7 % (4-13); Mean Corpuscular HGB 28.5 pg (26.0-34.0); Mean Corpuscular HGB Conc 30.9 g/dL (31.5-36.5); Mean Corpuscular Volume 92 fL (80-100); NEUTROPHILS PERCENT AUTO 68 % (41-73); Platelet Count 295 K/mm3 (150-400); RDW Coefficient Variation 16.3 % (11.7-14.2); RDW Standard Deviation 55.4 fL (35.1-46.3); Red Blood Cell Count 3.47 M/mm3 (3.80-5.20); White Blood Cell Count 8.71 K/mm3 (4.00-11.30)
[2022-08-08 04:00] LABS: Bicarbonate Venous 20.4 mmol/L (24.0-30.0)
[2022-08-08 04:14] LABS: Beta-hydroxybutyrate 27.1 mg/dL (0.2-2.8)
[2022-08-08 04:33] LABS: Bun/Creatinine Ratio 9.5 (12.0-20.0); Calcium, Blood 7.6 mg/dL (8.5-10.1); Creatinine, Blood 7.92 mg/dL (0.40-1.00); Potassium, Blood 6.5 mmol/L (3.5-5.5)
[2022-08-08 06:05] LABS: Bun/Creatinine Ratio 9.7 (12.0-20.0); Calcium, Blood 7.5 mg/dL (8.5-10.1); Creatinine, Blood 8.17 mg/dL (0.40-1.00)
[2022-08-08 06:06] LABS: Potassium, Blood 4.1 mmol/L (3.5-5.5)
--- NOTE | 2022-08-08 10:25 | NUR ---
ARRIVAL TO ICU PT ARRIVES TO ICU FROM ER AT 0827 FOR PLACEMENT OF TEMP HEMODIALYSIS PORT. PT HAD PERMACATH TO LEFT CHEST WALL THAT BECAME DISLODGED LAST NOC. FISTULA TO RIGHT ARM, PT WAS TOLD BY SURGEON NOT TO USE D/T NARROWING AND INFILTRATION. VASCULAR SURGEON IN [place]. HAS SCHEDULED APPT THURSDAY FOR STENT PLACEMENT. M, W, F DIALYSIS DAYS, LAST DIALYSIS THU. PT ALSO REPORTS THAT p ALBUTERAL NEB, SHE DEVELOPED 10/10 CP THAT RADIATES TO BOTH ARMS, NECK, 01/20. MEDICATED c TYLENOL AND GI COCKTAIL. STATES PAIN NOW 5/10. LUNGS CLEAR. SR, RATE 80'S ON MONITOR. PT REPORTS HX OF HYPOTENSION. PLAN FOR TRIALYSIS CATH PLACEMENT AND DIALYSIS. WILL CONTINUE TO MONITOR.
--- NOTE | 2022-08-08 10:38 | NUR ---
Pt. is awake and welcomes my visit but but is displaying evidence of discomfort. This district manager chose to keep the visit brief. The Pt. requested prayer. Prayer with pt. Pt. welcomed this district manager to return after her procedure schudled for later today.
[2022-08-08 10:44] LABS: Calcium, Blood 7.3 mg/dL (8.5-10.1)
[2022-08-08 10:46] LABS: Bun/Creatinine Ratio 10.2 (12.0-20.0); Creatinine, Blood 8.03 mg/dL (0.40-1.00)
[2022-08-08 10:47] LABS: Potassium, Blood 6.7 mmol/L (3.5-5.5)
[2022-08-08] MEDS ORDERED: INSULIN AS100 UNIT/7 SQ (11:25)
[2022-08-08 13:01] LABS: Glucose, Blood 781 mg/dL (70-99)
[2022-08-08 14:49] LABS: Bun/Creatinine Ratio 9.7 (12.0-20.0); Calcium, Blood 7.2 mg/dL (8.5-10.1); Creatinine, Blood 8.69 mg/dL (0.40-1.00); Potassium, Blood 6.7 mmol/L (3.5-5.5)
[2022-08-08 17:37] LABS: Anti-Xa UFH, PHA Monitoring <0.10 IU/mL; International Normalized Ratio 1.04; Prothrombin Time Results 10.9 Sec (9.7-11.5)
--- NOTE | 2022-08-08 17:48 | NUR ---
SHIFT SUMMARY/TRANSFER TO [facility] MULTIPLE ATTEMPTS TO PLACE [facility] CATH. UNABLE TO OBTAIN ACCESS. DR SAMUELS ARRANGED TRANSFER TO [facility] IN [place]. DR GONZALEZ AWARE. REPEAT MEDS GIVEN FOR HYPERKALEMIA. GLUCOSE CONTINUED TO TREND UP, STARTED ON INSULIN GTT. ALSO STARTED ON HEPARIN GTT D/T ELEVATED TROPONIN. PT A&O X 4. ANSWERS QUESTIONS APPROPRIATELY. STATES SHE IS FEELING BETTER. DENIES CHEST PAIN. LUNGS CLEAR. SR ON MONITOR, RATE 90'S. BP LABILE, MAPS TRENDING IN 55-65. POWERGLIDE PLACED TO LUE. AWAITING TRANSPORT TO [facility]. WILL CONTINUE TO MONITOR UNTIL TRANSFER.
--- NOTE | 2022-08-08 19:16 | NUR ---
PT TRANSFERRED TO [facility]. REPORT TO AZUL IN PCU. ALL BELONGINGS SENT c PT. INSULIN AND HEPARIN GTT CONTINUE ON TRANSFER.
== END 2022-08-08 19:05 | disposition short-term general hospital (02) | DRG 698 ==
LOC: ER 23:03 → PCU 23:04 → ICUE 08-08 08:36
PROVIDERS: Internal Medicine; Internal Medicine Critical Care Medicine; Student in an Organized Health Care Education/Training Program; ADMIT Internal Medicine
PROC: 5A1D70Z Performance of Urinary Filtration, Intermittent, Less than 6 Hours Per Day (ICD-10-PCS; principal; 2022-08-08)
DX: T82.42XA Displacement of vascular dialysis catheter, initial encounter (principal); E11.10 Type 2 diabetes mellitus with ketoacidosis without coma; N18.6 End stage renal disease; E87.1 Hypo-osmolality and hyponatremia; Z68.41 Body mass index [BMI] 40.0-44.9, adult; E87.5 Hyperkalemia; E03.9 Hypothyroidism, unspecified; F41.9 Anxiety disorder, unspecified; E78.5 Hyperlipidemia, unspecified; I25.10 Atherosclerotic heart disease of native coronary artery without angina pectoris; I50.9 Heart failure, unspecified; I35.0 Nonrheumatic aortic (valve) stenosis; G47.33 Obstructive sleep apnea (adult) (pediatric); E66.01 Morbid (severe) obesity due to excess calories; R94.31 Abnormal electrocardiogram [ECG] [EKG]; E11.22 Type 2 diabetes mellitus with diabetic chronic kidney disease; E11.42 Type 2 diabetes mellitus with diabetic polyneuropathy; I95.89 Other hypotension; Z98.890 Other specified postprocedural states; Z87.891 Personal history of nicotine dependence; Z88.1 Allergy status to other antibiotic agents; Z91.09 Other allergy status, other than to drugs and biological substances; Z79.82 Long term (current) use of aspirin; Z79.51 Long term (current) use of inhaled steroids; Z79.899 Other long term (current) drug therapy; Z95.5 Presence of coronary angioplasty implant and graft; Z79.890 Hormone replacement therapy; Z99.81 Dependence on supplemental oxygen; Z88.8 Allergy status to other drugs, medicaments and biological substances; Z91.158 Patient's noncompliance with renal dialysis for other reason; Z99.2 Dependence on renal dialysis
CPT/HCPCS: 36415; 36556; 71045; 80047; 80048; 82010; 82803; 82947; 84484; 85014; 85025; 85520; 85610; 85730; 93005; 93010; 94644; 94664; 96374; 96375; 96376; 99285; A9270; C1751; C1752; G0378; J0612; J1644; J1815; J2001; J2060; J2405; J7040

== ENCOUNTER 2023-02-06 15:09 | Observation (INO) | payer MEDICARE, OTHER ==
[~2023-02-06] VITALS: Ht 152.4 cm; Wt 99.6 kg
[~2023-02-06 15:09] MED LIST changes: +INSULIN AS100 UNIT/7 SQ
[2023-02-06 16:14] LABS: BASOPHILS ABSOLUTE AUTO 0.02 K/mm3 (0.00-0.23); BASOPHILS PERCENT AUTO 0 % (0-2); EOSINOPHILS ABSOLUTE AUTO 0.16 K/mm3 (0.00-0.68); EOSINOPHILS PERCENT AUTO 2 % (0-6); Hematocrit 36.5 % (33.0-51.0); Hemoglobin 11.6 g/dL (11.5-16.0); IMMATURE GRAN ABSOLUTE AUTO 0.03 K/mm3 (0.00-0.10); IMMATURE GRAN PERCENT AUTO 0 % (0-1); LYMPHOCYTES ABSOLUTE AUTO 1.54 K/mm3 (0.84-5.20); LYMPHOCYTES PERCENT AUTO 17 % (21-46); MONOCYTES PERCENT AUTO 4 % (4-13); Mean Corpuscular HGB 29.4 pg (26.0-34.0); Mean Corpuscular HGB Conc 31.8 g/dL (31.5-36.5); Mean Corpuscular Volume 93 fL (80-100); NEUTROPHILS ABSOLUTE AUTO 7.06 K/mm3 (1.96-9.15); NEUTROPHILS PERCENT AUTO 77 % (41-73); Platelet Count 266 K/mm3 (150-400); RDW Coefficient Variation 19.3 % (11.7-14.2); RDW Standard Deviation 65.5 fL (35.1-46.3); Red Blood Cell Count 3.94 M/mm3 (3.80-5.20); White Blood Cell Count 9.21 K/mm3 (4.00-11.30)
[2023-02-06 16:54] LABS: Albumin, Blood 3.6 g/dL (3.4-5.0); Albumin/Globulin Ratio 0.9 (0.8-1.8); Bilirubin, Total 0.4 mg/dL (0.1-1.0); Bun/Creatinine Ratio 7.6 (12.0-20.0); Calcium, Blood 8.1 mg/dL (8.5-10.1); Globulin, Blood 4.1 g/dL (2.2-4.0); Total Protein, Blood 7.7 g/dL (6.4-8.2)
[2023-02-06 19:40] LABS: Calcium, Ionized (POC) 0.94 mmol/L (1.10-1.46); Chloride (POC) 97 mmol/L (98-108); Glucose (ISTAT POC) 187 mg/dL (70-99); Hemoglobin (POC) 11.9 g/dL (12.0-16.0); Sodium (POC) 133 mmol/L (135-148); Total CO2 (POC) 28 mmol/L (21-32)
[2023-02-06 23:19] VITALS: BP 102/57
[2023-02-06 23:30] VITALS: BP 97/34
[2023-02-06 23:33] VITALS: BP 93/47
[2023-02-06 23:48] VITALS: BP 106/83
[2023-02-07] VITALS (28 sets, daily range): BP systolic 64–96; BP diastolic 25–77
[2023-02-07 03:26] LABS: BASOPHILS ABSOLUTE AUTO 0.02 K/mm3 (0.00-0.23); BASOPHILS PERCENT AUTO 0 % (0-2); EOSINOPHILS ABSOLUTE AUTO 0.09 K/mm3 (0.00-0.68); EOSINOPHILS PERCENT AUTO 1 % (0-6); Hematocrit 30.7 % (33.0-51.0); Hemoglobin 9.9 g/dL (11.5-16.0); IMMATURE GRAN ABSOLUTE AUTO 0.02 K/mm3 (0.00-0.10); IMMATURE GRAN PERCENT AUTO 0 % (0-1); LYMPHOCYTES ABSOLUTE AUTO 1.43 K/mm3 (0.84-5.20); LYMPHOCYTES PERCENT AUTO 17 % (21-46); MONOCYTES ABSOLUTE AUTO 0.65 K/mm3 (0.16-1.47); MONOCYTES PERCENT AUTO 8 % (4-13); Mean Corpuscular HGB 29.6 pg (26.0-34.0); Mean Corpuscular HGB Conc 32.2 g/dL (31.5-36.5); Mean Corpuscular Volume 92 fL (80-100); Mean Platelet Volume 9.2 fL (9.1-12.4); NEUTROPHILS PERCENT AUTO 74 % (41-73); Platelet Count 249 K/mm3 (150-400); RDW Coefficient Variation 19.4 % (11.7-14.2); RDW Standard Deviation 65.2 fL (35.1-46.3); Red Blood Cell Count 3.35 M/mm3 (3.80-5.20); White Blood Cell Count 8.41 K/mm3 (4.00-11.30)
[2023-02-07 04:19] LABS: Albumin, Blood 4.1 g/dL (3.4-5.0); Albumin/Globulin Ratio 1.2 (0.8-1.8); Bilirubin, Total 0.5 mg/dL (0.1-1.0); Bun/Creatinine Ratio 6.3 (12.0-20.0); Creatinine, Blood 7.47 mg/dL (0.40-1.00); Globulin, Blood 3.3 g/dL (2.2-4.0); Magnesium, Blood 2.6 mg/dL (1.6-2.4); Phosphorus, Blood 4.2 mg/dL (2.5-4.9); Potassium, Blood 4.5 mmol/L (3.5-5.5); Total Protein, Blood 7.4 g/dL (6.4-8.2)
--- NOTE | 2023-02-07 05:54 | NUR ---
EOS: ALERT AND ORIENTED X 4, CURRENLTY RESTING WEARING CPAP RA HOME AUTO NASAL PILLOW. NO INFUSIONS. POWERGLIDE ROMAINE DRAWS WHEN FLAT AND TURNIQUET. LABS IMPROVED THIS AM. DIALYSIS PULLED ROUGHLY 1.75. DENIED NEED FOR BATH FOR THIS RN. WILL REPORT TO DAY. PATIENT WAS NOT ABLE TO PICKUP FLUCONAZOLE AT OUTPATIENT PHARMACY, MOSTLY LIKELY WILL NEED OR NYSTATIN. BLOOD PRESSURE HAS BEEN DECREASED. DR. GONZALEZ, AND ED PHYSICIANS WERE AWARE. STARTED ON SOME HOME MEDS, THE REST NEED ORDERED BY DOCTOR. PATIENT WITH CHRONICALLY LOW BLOOD PRESSURE MILDLY IMPROVED WITH FLUDICORTISONE THIS AM. HEARTRATE IMPROVED WITH DIALYSIS. PATIENT IS ASYMPTOMATIC WITH BLOOD PRESSURE. BLOOD GLUCOSE HAS BEEN UNDERCONTROL TELE IN PLACE. DENIES CHEST PAIN, STILL HAS MILD CHEST PRESSURE, MILDLY LESSENED WITH DIALYSIS AND SLEEP. PATIENT ALSO ENDORSED DRAINAGE FROM EYE WELL.
--- NOTE | 2023-02-07 06:10 | NUR ---
INFORMED DR. GONZALEZ OF BLOOD PRESSURES, WNATS TO BE NOTIFIED FOR SYMPTOMATIC HYPOTENSION ONLY, INFORMED SHE TYPICALLY LIVES IN [facility] WILL PLACE NURSE NOTIFY. CONTINUE TO MONITOR.
--- NOTE | 2023-02-07 15:51 | NUR ---
UPDATE/DISCHARGE VSS PRIOR TO DISCHARGE. PT'S BP AT BASELINE FOR PT. POWERGLIDE REMOVED. PT BROUGHT BY WHEELCHAIR TO EXIT FOR PICKUP BY [facility] WITH ALL BELONGINGS BY [facility]IMMER TAILER.
== END 2023-02-07 15:15 | disposition home or self-care (01) ==
LOC: ER 15:09 → PCU 15:10
PROVIDERS: Emergency Medicine; Nurse Practitioner Acute Care; ADMIT Student in an Organized Health Care Education/Training Program
DX: E87.5 Hyperkalemia (principal); N18.6 End stage renal disease; Z99.2 Dependence on renal dialysis; E11.22 Type 2 diabetes mellitus with diabetic chronic kidney disease; Z79.4 Long term (current) use of insulin; E03.9 Hypothyroidism, unspecified; F41.9 Anxiety disorder, unspecified; G47.33 Obstructive sleep apnea (adult) (pediatric); E78.5 Hyperlipidemia, unspecified; I95.89 Other hypotension; I25.10 Atherosclerotic heart disease of native coronary artery without angina pectoris; E11.40 Type 2 diabetes mellitus with diabetic neuropathy, unspecified; K21.9 Gastro-esophageal reflux disease without esophagitis; Z88.1 Allergy status to other antibiotic agents
CPT/HCPCS: 36415; 71045; 80047; 80053; 82947; 83735; 84100; 84132; 84484; 85014; 85025; 93005; 93010; 94644; 94660; 94664; 94762; 96365; 96366; 96372; 96376; 99285-25; A9270; C1751; G0257; G0378; J1644; P9046

== ENCOUNTER 2023-04-07 00:08 | Emergency (ER) | payer MEDICARE, OTHER ==
[~2023-04-07] VITALS: Ht 152.4 cm; Wt 98.4 kg
[2023-04-07 00:55] LABS: BASOPHILS ABSOLUTE AUTO 0.01 K/mm3 (0.00-0.23); BASOPHILS PERCENT AUTO 0 % (0-2); EOSINOPHILS ABSOLUTE AUTO 0.17 K/mm3 (0.00-0.68); EOSINOPHILS PERCENT AUTO 2 % (0-6); Hematocrit 29.5 % (33.0-51.0); Hemoglobin 9.5 g/dL (11.5-16.0); IMMATURE GRAN ABSOLUTE AUTO 0.03 K/mm3 (0.00-0.10); IMMATURE GRAN PERCENT AUTO 0 % (0-1); LYMPHOCYTES ABSOLUTE AUTO 1.56 K/mm3 (0.84-5.20); LYMPHOCYTES PERCENT AUTO 21 % (21-46); MONOCYTES ABSOLUTE AUTO 0.54 K/mm3 (0.16-1.47); MONOCYTES PERCENT AUTO 7 % (4-13); Mean Corpuscular HGB 29.9 pg (26.0-34.0); Mean Corpuscular HGB Conc 32.2 g/dL (31.5-36.5); Mean Corpuscular Volume 93 fL (80-100); Mean Platelet Volume 9.6 fL (9.1-12.4); NEUTROPHILS ABSOLUTE AUTO 5.05 K/mm3 (1.96-9.15); NEUTROPHILS PERCENT AUTO 69 % (41-73); Platelet Count 248 K/mm3 (150-400); Red Blood Cell Count 3.18 M/mm3 (3.80-5.20); White Blood Cell Count 7.36 K/mm3 (4.00-11.30)
[2023-04-07] MEDS ORDERED: LOKELMA10 GM PO (01:48)
[2023-04-07] MEDS ORDERED: ROPINIROLE HC0.2510 PO (01:49)
[2023-04-07 01:51] LABS: Albumin, Blood 3.7 g/dL (3.4-5.0); Albumin/Globulin Ratio 0.9 (0.8-1.8); Bilirubin, Total 0.4 mg/dL (0.1-1.0); Bun/Creatinine Ratio 8.1 (12.0-20.0); Calcium, Blood 8.1 mg/dL (8.5-10.1); Creatinine, Blood 13.9 mg/dL (0.40-1.00); Globulin, Blood 4.1 g/dL (2.2-4.0); Potassium, Blood 5.6 mmol/L (3.5-5.5); Total Protein, Blood 7.8 g/dL (6.4-8.2)
[2023-04-07 02:27] LABS: Influenza A, PCR NEGATIVE (NEGATIVE); Influenza B, PCR NEGATIVE (NEGATIVE); Resp Syncytial Virus, PCR NEGATIVE (NEGATIVE); SARS-Cov-2 (COVID-19) PCR, MMC NEGATIVE (NEGATIVE)
[2023-04-07 02:45] VITALS: BP 105/52
== END 2023-04-07 04:40 | disposition home or self-care (01) ==
LOC: ER 00:08
PROVIDERS: Emergency Medicine; Student in an Organized Health Care Education/Training Program
DX: E87.5 Hyperkalemia (principal); E10.65 Type 1 diabetes mellitus with hyperglycemia; E10.22 Type 1 diabetes mellitus with diabetic chronic kidney disease; N18.6 End stage renal disease; Z99.2 Dependence on renal dialysis; D64.9 Anemia, unspecified; D72.829 Elevated white blood cell count, unspecified; I50.9 Heart failure, unspecified; Z20.822 Contact with and (suspected) exposure to COVID-19; Z87.891 Personal history of nicotine dependence; E78.5 Hyperlipidemia, unspecified; G47.30 Sleep apnea, unspecified; Z79.82 Long term (current) use of aspirin; Z79.899 Other long term (current) drug therapy; Z88.1 Allergy status to other antibiotic agents; Z88.8 Allergy status to other drugs, medicaments and biological substances
CPT/HCPCS: 0241U; 71046; 80053; 82947; 83880; 85025; 93005; 93010; 99285-25; J1815

== ENCOUNTER 2023-08-07 15:41 | Emergency (ER) | payer MEDICARE, OTHER ==
[~2023-08-07] VITALS: Ht 152.4 cm; Wt 98.4 kg
[~2023-08-07 15:41] MED LIST changes: +ATOM10 PO; +LOKELMA10 GM PO; +ROPINIROLE HC0.2510 PO
[2023-08-07 15:44] VITALS: BP 132/61
[2023-08-07] MEDS ORDERED: MIDO5 (16:43)
[2023-08-07] MEDS ORDERED: VALA500 (16:43)
[2023-08-07] MEDS ORDERED: MUPIROCIN TOP (16:54)
== END 2023-08-07 17:01 | disposition home or self-care (01) ==
LOC: ER 15:41
DX: L08.9 Local infection of the skin and subcutaneous tissue, unspecified (principal); Z88.1 Allergy status to other antibiotic agents; Z79.899 Other long term (current) drug therapy; Z79.82 Long term (current) use of aspirin; Z79.4 Long term (current) use of insulin; E11.9 Type 2 diabetes mellitus without complications; G47.30 Sleep apnea, unspecified; E78.5 Hyperlipidemia, unspecified; E03.9 Hypothyroidism, unspecified; I50.9 Heart failure, unspecified; Z87.891 Personal history of nicotine dependence
CPT/HCPCS: 99282

== ENCOUNTER 2023-12-02 14:59 | Emergency (ER) | payer MEDICARE, OTHER ==
[~2023-12-02] VITALS: Ht 152.4 cm; Wt 90.7 kg
[~2023-12-02 14:59] MED LIST changes: +MIDO5; +MUPIROCIN TOP; +VALA500
[2023-12-02 16:50] LABS: BASOPHILS ABSOLUTE AUTO 0.03 K/mm3 (0.00-0.23); BASOPHILS PERCENT AUTO 0 % (0-2); EOSINOPHILS ABSOLUTE AUTO 0.27 K/mm3 (0.00-0.68); EOSINOPHILS PERCENT AUTO 3 % (0-6); Hematocrit 24.3 % (33.0-51.0); Hemoglobin 7.5 g/dL (11.5-16.0); IMMATURE GRAN ABSOLUTE AUTO 0.33 K/mm3 (0.00-0.10); IMMATURE GRAN PERCENT AUTO 4 % (0-1); LYMPHOCYTES ABSOLUTE AUTO 1.37 K/mm3 (0.84-5.20); LYMPHOCYTES PERCENT AUTO 15 % (21-46); MONOCYTES ABSOLUTE AUTO 0.53 K/mm3 (0.16-1.47); MONOCYTES PERCENT AUTO 6 % (4-13); Mean Corpuscular HGB 28.4 pg (26.0-34.0); Mean Corpuscular HGB Conc 30.9 g/dL (31.5-36.5); Mean Corpuscular Volume 92 fL (80-100); Mean Platelet Volume 9.3 fL (9.1-12.4); NEUTROPHILS ABSOLUTE AUTO 6.53 K/mm3 (1.96-9.15); NEUTROPHILS PERCENT AUTO 72 % (41-73); NRBC ABSOLUTE 0.02 K/mm3 (0.00-0.02); NRBC Auto 0.2 /100 WBC (0.0-0.2); Platelet Count 284 K/mm3 (150-400); RDW Coefficient Variation 17.2 % (11.7-14.2); RDW Standard Deviation 56.7 fL (35.1-46.3); Red Blood Cell Count 2.64 M/mm3 (3.80-5.20); White Blood Cell Count 9.06 K/mm3 (4.00-11.30)
[2023-12-02 17:08] LABS: Albumin, Blood 3.3 g/dL (3.4-5.0); Albumin/Globulin Ratio 0.8 (0.8-1.8); Bilirubin, Total 0.6 mg/dL (0.1-1.0); Bun/Creatinine Ratio 6.6 (12.0-20.0); Calcium, Blood 8.7 mg/dL (8.5-10.1); Creatinine, Blood 10.6 mg/dL (0.40-1.00); Globulin, Blood 4.3 g/dL (2.2-4.0); Potassium, Blood 4.6 mmol/L (3.5-5.5); Total Protein, Blood 7.6 g/dL (6.4-8.2)
[2023-12-02 19:15] VITALS: BP 110/69
== END 2023-12-02 19:43 | disposition home or self-care (01) ==
LOC: ER 14:59
PROVIDERS: Student in an Organized Health Care Education/Training Program
DX: T82.49XA Other complication of vascular dialysis catheter, initial encounter (principal); Z88.1 Allergy status to other antibiotic agents; Z79.899 Other long term (current) drug therapy; Z79.82 Long term (current) use of aspirin; E11.9 Type 2 diabetes mellitus without complications; E78.5 Hyperlipidemia, unspecified; E03.9 Hypothyroidism, unspecified; I50.9 Heart failure, unspecified; Z87.891 Personal history of nicotine dependence
CPT/HCPCS: 71046; 80053; 83880; 85025; 93005; 93010; 99284-25

== ENCOUNTER → 2024-02-22 | Outpatient (CLI) | payer MEDICARE, OTHER ==
[2024-02-22 11:46] LABS: BASOPHILS ABSOLUTE AUTO 0.02 K/mm3 (0.00-0.23); BASOPHILS PERCENT AUTO 0 % (0-2); EOSINOPHILS PERCENT AUTO 3 % (0-6); Hematocrit 30.3 % (33.0-51.0); Hemoglobin 9.6 g/dL (11.5-16.0); IMMATURE GRAN ABSOLUTE AUTO 0.04 K/mm3 (0.00-0.10); IMMATURE GRAN PERCENT AUTO 1 % (0-1); LYMPHOCYTES PERCENT AUTO 17 % (21-46); MONOCYTES ABSOLUTE AUTO 0.65 K/mm3 (0.16-1.47); MONOCYTES PERCENT AUTO 7 % (4-13); Mean Corpuscular HGB 27.8 pg (26.0-34.0); Mean Corpuscular HGB Conc 31.7 g/dL (31.5-36.5); Mean Corpuscular Volume 88 fL (80-100); Mean Platelet Volume 9.3 fL (9.1-12.4); NEUTROPHILS ABSOLUTE AUTO 6.27 K/mm3 (1.96-9.15); NEUTROPHILS PERCENT AUTO 71 % (41-73); Platelet Count 281 K/mm3 (150-400); RDW Coefficient Variation 16.3 % (11.7-14.2); RDW Standard Deviation 52.5 fL (35.1-46.3); Red Blood Cell Count 3.45 M/mm3 (3.80-5.20); White Blood Cell Count 8.78 K/mm3 (4.00-11.30)
[2024-02-22 14:31] LABS: Albumin, Blood 3.7 g/dL (3.4-5.0); Bilirubin, Total 0.4 mg/dL (0.1-1.0); Bun/Creatinine Ratio 7.9 (12.0-20.0); Calcium, Blood 9.7 mg/dL (8.5-10.1); Globulin, Blood 3.8 g/dL (2.2-4.0); Potassium, Blood 4.3 mmol/L (3.5-5.5); Total Protein, Blood 7.5 g/dL (6.4-8.2)
[2024-02-22 14:32] LABS: Creatinine, Blood 10.5 mg/dL (0.40-1.00)
== END ==
LOC: LAB SHORT 11:22 → LAB 11:22
PROVIDERS: Nurse Practitioner Family
DX: E10.9 Type 1 diabetes mellitus without complications (principal)
CPT/HCPCS: 80053; 85025

== ENCOUNTER → 2024-04-08 | Outpatient (CLI) | payer SELFPAY ==
[2024-04-08 14:20] LABS: Albumin, Blood 3.3 g/dL (3.4-5.0); Albumin/Globulin Ratio 0.8 (0.8-1.8); Bilirubin, Total 0.5 mg/dL (0.1-1.0); Bun/Creatinine Ratio 5.9 (12.0-20.0); Calcium, Blood 8.2 mg/dL (8.5-10.1); Creatinine, Blood 7.52 mg/dL (0.40-1.00); Globulin, Blood 3.9 g/dL (2.2-4.0); Potassium, Blood 4.2 mmol/L (3.5-5.5); Total Protein, Blood 7.2 g/dL (6.4-8.2)
[2024-04-08 14:31] LABS: Hematocrit 33.4 % (33.0-51.0); Hemoglobin 10.4 g/dL (11.5-16.0); Mean Corpuscular HGB 27.4 pg (26.0-34.0); Mean Corpuscular HGB Conc 31.1 g/dL (31.5-36.5); Mean Corpuscular Volume 88 fL (80-100); Mean Platelet Volume 9.8 fL (9.1-12.4); Platelet Count 276 K/mm3 (150-400); RDW Coefficient Variation 17.5 % (11.7-14.2); RDW Standard Deviation 55.9 fL (35.1-46.3); Red Blood Cell Count 3.79 M/mm3 (3.80-5.20); White Blood Cell Count 9.52 K/mm3 (4.00-11.30)
[2024-04-08 14:36] LABS: International Normalized Ratio 1.01; Prothrombin Time Results 10.8 Sec (9.7-11.5)
== END ==
LOC: LAB SHORT 12:20 → LAB 12:20
PROVIDERS: Student in an Organized Health Care Education/Training Program
DX: I13.0 Hypertensive heart and chronic kidney disease with heart failure and stage 1 through stage 4 chronic kidney disease, or unspecified chronic kidney disease (principal); N18.6 End stage renal disease; I50.9 Heart failure, unspecified; R94.39 Abnormal result of other cardiovascular function study; I95.9 Hypotension, unspecified
CPT/HCPCS: 80053; 85027; 85610

== ENCOUNTER → 2024-04-08 | Outpatient (CLI) | payer SELFPAY ==
[2024-04-08 13:32] LABS: Hematocrit 33.8 % (33.0-51.0); Hemoglobin 10.4 g/dL (11.5-16.0); Mean Corpuscular HGB 27.1 pg (26.0-34.0); Mean Corpuscular HGB Conc 30.8 g/dL (31.5-36.5); Mean Corpuscular Volume 88 fL (80-100); Mean Platelet Volume 9.6 fL (9.1-12.4); Platelet Count 269 K/mm3 (150-400); RDW Coefficient Variation 17.7 % (11.7-14.2); RDW Standard Deviation 55.6 fL (35.1-46.3); Red Blood Cell Count 3.84 M/mm3 (3.80-5.20); White Blood Cell Count 9.48 K/mm3 (4.00-11.30)
[2024-04-08 13:48] LABS: Albumin, Blood 3.4 g/dL (3.4-5.0); Albumin/Globulin Ratio 0.8 (0.8-1.8); Bilirubin, Total 0.5 mg/dL (0.1-1.0); Calcium, Blood 8.4 mg/dL (8.5-10.1); Creatinine, Blood 7.53 mg/dL (0.40-1.00); Potassium, Blood 4.2 mmol/L (3.5-5.5); Total Protein, Blood 7.4 g/dL (6.4-8.2)
== END ==
LOC: LAB 12:20 → LAB SHORT 12:20
PROVIDERS: Internal Medicine
DX: R94.39 Abnormal result of other cardiovascular function study (principal); I95.9 Hypotension, unspecified; N18.6 End stage renal disease
CPT/HCPCS: 80053; 85027

== ENCOUNTER → 2024-10-24 | Outpatient (CLI) | payer OTHER ==
[2024-10-24 19:21] LABS: CHOL/HDL RATIO 2.9; Cholesterol 100 mg/dL (50-200); HDL Cholesterol 35 mg/dL (>39); LDL/HDL RATIO 1.1; Low Density Lipoprotein Chol 39 mg/dL (0-110); Thyroid Stimulating Hormone 1.760 uIU/mL (0.360-4.800); Triglycerides 132 mg/dL (30-160); Very Low Density Lipoprot Chol 26 mg/dL (6-32)
== END ==
LOC: LAB 17:01 → LAB SHORT 17:01
PROVIDERS: Student in an Organized Health Care Education/Training Program
DX: E03.9 Hypothyroidism, unspecified (principal); E10.22 Type 1 diabetes mellitus with diabetic chronic kidney disease
CPT/HCPCS: 80061; 84439; 84443

== ENCOUNTER → 2024-12-06 | Outpatient (CLI) | payer OTHER ==
[2024-12-06 15:59] LABS: Bacterial Vaginosis PCR Negative (NEGATIVE); Candida Group, PCR NOT DETECTED (NOT DETECT); Candida glabrata-krusei, PCR NOT DETECTED (NOT DETECT)
== END ==
LOC: LAB SHORT 11:13 → LAB 11:13
PROVIDERS: Advanced Practice Midwife
DX: N76.0 Acute vaginitis (principal)
CPT/HCPCS: 81515

== ENCOUNTER → 2025-02-06 | Outpatient (CLI) | payer OTHER ==
[2025-02-06 21:59] LABS: CHOL/HDL RATIO 3.0; Cholesterol 122 mg/dL (50-200); HDL Cholesterol 41 mg/dL (>39); LDL/HDL RATIO 1.3; Low Density Lipoprotein Chol 53 mg/dL (0-110); Thyroid Stimulating Hormone 3.450 uIU/mL (0.360-4.800); Triglycerides 138 mg/dL (30-160); Very Low Density Lipoprot Chol 27 mg/dL (6-32)
== END ==
LOC: LAB 17:42 → LAB SHORT 17:42
PROVIDERS: Internal Medicine Nephrology
DX: E03.9 Hypothyroidism, unspecified (principal); E10.22 Type 1 diabetes mellitus with diabetic chronic kidney disease; N18.6 End stage renal disease
CPT/HCPCS: 80061; 84443

== ENCOUNTER → 2025-04-12 | Outpatient (CLI) | payer OTHER ==
[2025-04-12 17:09] LABS: Bacterial Vaginosis PCR Negative (NEGATIVE); Candida Group, PCR NOT DETECTED (NOT DETECT); Candida glabrata-krusei, PCR NOT DETECTED (NOT DETECT)
== END | disposition home or self-care (01) ==
LOC: LAB 12:46 → LAB SHORT 12:46
PROVIDERS: Advanced Practice Midwife
DX: Z01.419 Encounter for gynecological examination (general) (routine) without abnormal findings (principal); N76.0 Acute vaginitis
CPT/HCPCS: 81515; 87624; G0145